=== PATIENT | male | born 1965 | race Caucasian/White ===

== ENCOUNTER → 2017-05-25 | Outpatient (CLI) | payer BC ==
[2017-05-25 07:56] LABS: INR 1.1 (<1.2); Partial Thromboplastin Time 24.3 sec (22.0-30.0); Prothrombin Time 11.2 sec (9.0-12.0)
[2017-05-25 08:02] LABS: Anisocytosis Slight; Basophils % (A) 1 %; CH 30.7; CHCM 35.7; Eosinophils # (A) 0.1 k/uL (0-0.7); Eosinophils % (A) 4 %; HCT 37.1 % (39.0-53.0); HDW 3.27; HGB 12.6 gm/dL (13.0-17.5); Luc # (Auto) 0.05; Luc % (Auto) 3; Lymphocytes # (A) 0.3 k/uL (1.0-4.8); Lymphocytes % (A) 20 %; MCH 29.5 pg (25.0-35.0); MCHC 34.1 g/dL (31.0-37.0); MCV 86.4 fL (80.0-100.0); Mean Platelet Volume 7.7; Monocytes # (A) 0.1 k/uL (0-1.0); Monocytes % (A) 8 %; Neutrophils # (A) 1.1 k/uL (1.3-7.7); Neutrophils % (A) 66 %; RBC 4.29 m/uL (4.30-5.90); RDW 16.2 % (11.5-15.5); WBC (Perox) 1.63
[2017-05-25 08:43] LABS: WBC 1.6 k/uL (3.8-10.6)
[2017-05-25 10:03] LABS: ALT 90 U/L (21-72); AST 47 U/L (17-59); Alkaline Phosphatase 177 U/L (38-126); Anion Gap 10 mmol/L; Bilirubin, Delta 0.4 mg/dL (0.0-0.2); Blood Urea Nitrogen 17 mg/dL (9-20); Calcium 8.8 mg/dL (8.4-10.2); Carbon Dioxide 25 mmol/L (22-30); Chloride 105 mmol/L (98-107); Glucose 259 mg/dL (74-99); Non-African American GFR(MDRD) >60 (>60 ml/min/1.73 sqM); Potassium 4.5 mmol/L (3.5-5.1); Sodium 140 mmol/L (137-145); Total Bilirubin 1.3 mg/dL (0.2-1.3); Total Protein 6.3 g/dL (6.3-8.2)
== END | disposition home or self-care (01) ==
LOC: LABWHC1 07:15
PROVIDERS: ATTEND Radiology Diagnostic Radiology
DX: C20 Malignant neoplasm of rectum (principal); C78.7 Secondary malignant neoplasm of liver and intrahepatic bile duct
CPT/HCPCS: 36415; 80048; 80076; 82378; 85025; 85610; 85730

== ENCOUNTER → 2017-08-31 | Outpatient (CLI) | payer BC ==
[2017-08-31 07:30] LABS: Basophils % (A) 0 %; Eosinophils # (A) 0.1 k/uL (0-0.7); Eosinophils % (A) 6 %; HCT 39.3 % (39.0-53.0); HGB 13.3 gm/dL (13.0-17.5); Lymphocytes # (A) 0.3 k/uL (1.0-4.8); Lymphocytes % (A) 17 %; MCH 27.3 pg (25.0-35.0); MCHC 33.9 g/dL (31.0-37.0); MCV 80.7 fL (80.0-100.0); Mean Platelet Volume 7.3; Monocytes # (A) 0.2 k/uL (0-1.0); Monocytes % (A) 11 %; Neutrophils # (A) 1.2 k/uL (1.3-7.7); Neutrophils % (A) 64 %; RBC 4.87 m/uL (4.30-5.90); RDW 15.7 % (11.5-15.5)
[2017-08-31 07:48] LABS: ALT 66 U/L (21-72); AST 48 U/L (17-59); Albumin 3.8 g/dL (3.5-5.0); Alkaline Phosphatase 206 U/L (38-126); Anion Gap 7 mmol/L; Bilirubin, Delta 0.3 mg/dL (0.0-0.2); Blood Urea Nitrogen 15 mg/dL (9-20); Calcium 9.4 mg/dL (8.4-10.2); Carbon Dioxide 29 mmol/L (22-30); Chloride 104 mmol/L (98-107); Glucose 177 mg/dL (74-99); Potassium 4.5 mmol/L (3.5-5.1); Sodium 140 mmol/L (137-145); Total Bilirubin 1.3 mg/dL (0.2-1.3); Total Protein 6.5 g/dL (6.3-8.2)
[2017-08-31 07:59] LABS: Platelet Count 59 k/uL (150-450)
[2017-08-31 08:03] LABS: WBC 1.8 k/uL (3.8-10.6)
== END | disposition home or self-care (01) ==
LOC: LABWHC1 06:29
PROVIDERS: ATTEND Radiology Diagnostic Radiology
DX: C78.7 Secondary malignant neoplasm of liver and intrahepatic bile duct (principal)
CPT/HCPCS: 36415; 80048; 80076; 85025

== ENCOUNTER → 2017-12-07 | Outpatient (CLI) | payer BC ==
[2017-12-07 15:24] LABS: Anisocytosis Slight; Basophils % (A) 1 %; Eosinophils # (A) 0.3 k/uL (0-0.7); Eosinophils % (A) 5 %; HCT 40.5 % (39.0-53.0); HGB 13.6 gm/dL (13.0-17.5); Lymphocytes # (A) 0.6 k/uL (1.0-4.8); Lymphocytes % (A) 13 %; MCH 27.4 pg (25.0-35.0); MCHC 33.6 g/dL (31.0-37.0); MCV 81.6 fL (80.0-100.0); Mean Platelet Volume 8.2; Monocytes # (A) 0.4 k/uL (0-1.0); Monocytes % (A) 9 %; Neutrophils # (A) 3.3 k/uL (1.3-7.7); Neutrophils % (A) 69 %; Poikilocytosis Slight; RBC 4.96 m/uL (4.30-5.90); RDW 16.7 % (11.5-15.5); WBC 4.7 k/uL (3.8-10.6)
[2017-12-07 15:59] LABS: Large Platelets Present; Platelet Count 80 k/uL (150-450)
== END | disposition home or self-care (01) ==
LOC: LABWHC1 15:07
PROVIDERS: ATTEND Internal Medicine Medical Oncology
DX: C20 Malignant neoplasm of rectum (principal)
CPT/HCPCS: 36415; 85025

== ENCOUNTER 2017-12-11 16:41 | Inpatient (IN) | payer BC ==
[2017-12-11] MEDS ORDERED: MORPHINE SULFATE 4 MG/0.8 ML SYRINGE (INJ) IVP STA (17:05)
[2017-12-11] MEDS ORDERED: ONDANSETRON 4 MG/2 ML VIAL IVP STA (17:05)
[2017-12-11] MEDS ORDERED: SODIUM CHLORIDE 0.9% 1,000 ML IV STA (17:24)
--- NOTE | 2017-12-11 17:24 | ED ---
General Adult HPI - General Chief complaint: Shortness of Breath Stated complaint: SOB/Abd Pain/Hx colo-rectal ca Time Seen by Provider: 12/11/17 16:52 Source: patient, RN notes reviewed Mode of arrival: ambulatory Limitations: no limitations - History of Present Illness Initial comments: Patient is a 52-year-old male with significant past medical history for colorectal cancer, presented to the emergency room today with chief complaint of increased abdominal pain starting this morning. He states his pain medication at home does not seem to be helping. He states that he's also had some increased short of breath at this abdominal pain started. He states that he recently had 2 L drained from the right long doctor Gaston Nevarez. Patient states that he took his chemo medication today. He denies any fever. Denies any associated symptoms. Patient denies any recent fever, chills, shortness of breath, chest pain, numbness or tingling, dysuria or hematuria, constipation or diarrhea, headaches or visual changes, or any other complaints. - Related Data Home Medications Medication Instructions Recorded Confirmed Citalopram Hydrobromide 40 mg PO DAILY 10/29/14 12/11/17 [Citalopram HBr] Glimepiride [Amaryl] 4 mg PO DAILY 10/29/14 12/11/17 metFORMIN HCL [Glucophage] 500 mg PO DAILY 10/29/14 12/11/17 Labetalol [Trandate] 200 mg PO BID 10/16/15 12/11/17 Lisinopril [Prinivil] 20 mg PO DAILY 12/11/17 12/11/17 Morphine Sulfate ER [Ms Contin 15 mg PO Q8H 12/11/17 12/11/17 15Mg] Trifluridine/Tipiracil HCl 2 tab PO BID 12/11/17 12/11/17 [Lonsurf 20 mg-8.19 mg Tablet] oxyCODONE HCL 10 mg PO Q4HR PRN 12/11/17 12/11/17 Allergies Allergy/AdvReac Type Severity Reaction Status Date / Time No Known Allergies Allergy Verified 12/11/17 16:47 Review of Systems ROS Statement: Those systems with pertinent positive or pertinent negative responses have been documented in the HPI. ROS Other: All systems not noted in ROS Statement are negative. Past Medical History Past Medical History: Cancer, Diabetes Mellitus, Hypertension, Pneumonia Additional Past Medical History / Comment(s): liver cancer, colorectal cancer stage 4, lymphoma, Pleuracy History of Any Multi-Drug Resistant Organisms: None Reported Past Surgical History: Bowel Resection Additional Past Surgical History / Comment(s): colonoscopy/bx,liver bx 3/4 liver resected d/t cancer-stated has coils in liver, 1-16 pt stated he had 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,has ileostomy, rt upper chest port. Past Anesthesia/Blood Transfusion Reactions: No Reported Reaction Past Psychological History: Anxiety Smoking Status: Never smoker Past Alcohol Use History: Rare Past Drug Use History: Marijuana - Past Family History Father Family Medical History: AICD/Pacemaker, Coronary Artery Disease (CAD), Diabetes Mellitus Additional Family Medical History / Comment(s): cabg Mother Family Medical History: Diabetes Mellitus, Hypertension Additional Family Medical History / Comment(s): migraines, psoriases General Exam - General Exam Comments Initial Comments: General: The patient is awake and alert, in no distress Eye: Pupils are equal, round and reactive to light, extra-ocular movements are intact. No nystagmus. There is normal conjunctiva bilaterally. Ears, nose, mouth and throat: There are moist mucous membranes and no oral lesions. Neck: The neck is supple, there is no tenderness or JVD. Cardiovascular: There is a regular rate and rhythm. No murmur, rub or gallop is appreciated. Respiratory: Lungs are clear to auscultation, respirations are non-labored, breath sounds are equal. No wheezes, stridor, rales, or rhonchi. Gastrointestinal: Abdomen soft on palpation. Does have tenderness epigastric and upper quadrants. No rebound tenderness. No guarding. Left sided CVA tenderness. Musculoskeletal: Normal ROM, no tenderness. Strength 5/5. Sensation intact. Pulses equal bilaterally 2+. Neurological: A&O x 3. CN II-XII intact, There are no obvious motor or sensory deficits. Coordination appears grossly intact. Speech is normal. Skin: Skin is warm and dry and no rashes or lesions are noted. Psychiatric: Cooperative, appropriate mood & affect, normal judgment. Limitations: no limitations Course Vital Signs 12/11/17 12/11/17 16:42 17:39 Temperature 99.5 F 98.3 F Pulse Rate 101 H 98 Respiratory 18 18 Rate Blood Pressure 118/78 118/75 O2 Sat by Pulse 97 95 Oximetry Medical Decision Making - Medical Decision Making Case discussed in detail with attending physician Dr. Madden. Patient reexamined at this time shows no signs of distress resting comfortably. Patient labs been reviewed. Patient's x-ray of the right lower lung shows a large effusion cannot exclude possible pneumonia. Patient will be started on antibiotics to cover for infection. Case is discussed with Rosio yates nurse practitioner will admit for Dr. Amaro. Pulmonology will be consulted. Patient aware the plan states understanding. - Lab Data Result diagrams: 12/11/17 17:27 12/11/17 17:27 Lab Results 12/11/17 12/11/17 12/11/17 Range/Units 17:27 17:27 17:27 WBC 4.2 (3.8-10.6) k/uL RBC 4.87 (4.30-5.90) m/uL Hgb 14.0 (13.0-17.5) gm/dL Hct 39.2 (39.0-53.0) % MCV 80.6 (80.0-100.0) fL MCH 28.7 (25.0-35.0) pg MCHC 35.6 (31.0-37.0) g/dL RDW 16.7 H (11.5-15.5) % Plt Count 94 L (150-450) k/uL Neutrophils % 66 % Lymphocytes % 15 % Monocytes % 8 % Eosinophils % 7 % Basophils % 1 % Neutrophils # 2.8 (1.3-7.7) k/uL Lymphocytes # 0.6 L (1.0-4.8) k/uL Monocytes # 0.4 (0-1.0) k/uL Eosinophils # 0.3 (0-0.7) k/uL Basophils # 0.0 (0-0.2) k/uL Hyperchromasia Slight Poikilocytosis Slight Anisocytosis Slight PT 13.5 H (9.0-12.0) sec INR 1.4 H (<1.2) APTT 25.1 (22.0-30.0) sec Sodium 138 (137-145) mmol/L Potassium 4.0 (3.5-5.1) mmol/L Chloride 104 (98-107) mmol/L Carbon Dioxide 26 (22-30) mmol/L Anion Gap 8 mmol/L BUN 11 (9-20) mg/dL Creatinine 0.52 L (0.66-1.25) mg/dL Est GFR (CKD-EPI)AfAm >90 (>60 ml/min/1.73 sqM) Est GFR (CKD-EPI)NonAf >90 (>60 ml/min/1.73 sqM) Glucose 240 H (74-99) mg/dL Calcium 8.6 (8.4-10.2) mg/dL Total Bilirubin 2.1 H (0.2-1.3) mg/dL AST 52 (17-59) U/L ALT 51 (21-72) U/L Alkaline Phosphatase 302 H (38-126) U/L Troponin I (0.000-0.034) ng/mL Total Protein 5.8 L (6.3-8.2) g/dL Albumin 3.1 L (3.5-5.0) g/dL Amylase 33 (30-110) U/L Lipase 40 (23-300) U/L 12/11/17 Range/Units 17:27 WBC (3.8-10.6) k/uL RBC (4.30-5.90) m/uL Hgb (13.0-17.5) gm/dL Hct (39.0-53.0) % MCV (80.0-100.0) fL MCH (25.0-35.0) pg MCHC (31.0-37.0) g/dL RDW (11.5-15.5) % Plt Count (150-450) k/uL Neutrophils % % Lymphocytes % % Monocytes % % Eosinophils % % Basophils % % Neutrophils # (1.3-7.7) k/uL Lymphocytes # (1.0-4.8) k/uL Monocytes # (0-1.0) k/uL Eosinophils # (0-0.7) k/uL Basophils # (0-0.2) k/uL Hyperchromasia Poikilocytosis Anisocytosis PT (9.0-12.0) sec INR (<1.2) APTT (22.0-30.0) sec Sodium (137-145) mmol/L Potassium (3.5-5.1) mmol/L Chloride (98-107) mmol/L Carbon Dioxide (22-30) mmol/L Anion Gap mmol/L BUN (9-20) mg/dL Creatinine (0.66-1.25) mg/dL Est GFR (CKD-EPI)AfAm (>60 ml/min/1.73 sqM) Est GFR (CKD-EPI)NonAf (>60 ml/min/1.73 sqM) Glucose (74-99) mg/dL Calcium (8.4-10.2) mg/dL Total Bilirubin (0.2-1.3) mg/dL AST (17-59) U/L ALT (21-72) U/L Alkaline Phosphatase (38-126) U/L Troponin I <0.012 (0.000-0.034) ng/mL Total Protein (6.3-8.2) g/dL Albumin (3.5-5.0) g/dL Amylase (30-110) U/L Lipase (23-300) U/L Disposition Clinical Impression: Pleural effusion, 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
[2017-12-11] MEDS ORDERED: METOCLOPRAMIDE 5 MG/ML 2 ML VIAL IVP STA (17:30)
[2017-12-11] MEDS ORDERED: diphenhydrAMINE 50 MG/ML 1 ML VIAL IVP STA (17:30)
[2017-12-11 17:38] LABS: Anisocytosis Slight; Basophils % (A) 1 %; Eosinophils # (A) 0.3 k/uL (0-0.7); Eosinophils % (A) 7 %; HCT 39.2 % (39.0-53.0); Hyperchromasia Slight; Lymphocytes # (A) 0.6 k/uL (1.0-4.8); Lymphocytes % (A) 15 %; MCH 28.7 pg (25.0-35.0); MCHC 35.6 g/dL (31.0-37.0); MCV 80.6 fL (80.0-100.0); Mean Platelet Volume 7.5; Monocytes # (A) 0.4 k/uL (0-1.0); Monocytes % (A) 8 %; Neutrophils # (A) 2.8 k/uL (1.3-7.7); Neutrophils % (A) 66 %; Poikilocytosis Slight; RBC 4.87 m/uL (4.30-5.90); RDW 16.7 % (11.5-15.5); WBC 4.2 k/uL (3.8-10.6)
[2017-12-11 17:48] LABS: ALT 51 U/L (21-72); AST 52 U/L (17-59); Albumin 3.1 g/dL (3.5-5.0); Alkaline Phosphatase 302 U/L (38-126); Amylase 33 U/L (30-110); Anion Gap 8 mmol/L; Blood Urea Nitrogen 11 mg/dL (9-20); Calcium 8.6 mg/dL (8.4-10.2); Carbon Dioxide 26 mmol/L (22-30); Chloride 104 mmol/L (98-107); Glucose 240 mg/dL (74-99); INR 1.4 (<1.2); Lipase 40 U/L (23-300); Partial Thromboplastin Time 25.1 sec (22.0-30.0); Prothrombin Time 13.5 sec (9.0-12.0); Sodium 138 mmol/L (137-145); Total Bilirubin 2.1 mg/dL (0.2-1.3); Total Protein 5.8 g/dL (6.3-8.2)
[2017-12-11 18:06] LABS: Platelet Count 94 k/uL (150-450)
--- NOTE | 2017-12-11 18:26 | XR ---
EXAMINATION TYPE: XR chest 2V DATE OF EXAM: 12/11/2017 COMPARISON: 07/01/2016 HISTORY: Chest pain TECHNIQUE: Frontal and lateral views of the chest are obtained. FINDINGS: There is opacification of the right lower hemithorax consistent with large pleural effusio n. There is right central venous catheter with the tip in the superior vena cava. Left lung is clear. There is no heart failure. Heart size is probably normal. The bony thorax is intact. IMPRESSION: There is new large right pleural effusion compared to old exam. No heart failure. Right lower lobe pneumonia is possible.
--- NOTE | 2017-12-11 18:27 | XR ---
EXAMINATION TYPE: XR KUB DATE OF EXAM: 12/11/2017 COMPARISON: NONE HISTORY: Chest pain abdominal pain TECHNIQUE: 2 views FINDINGS: There is no sign of intestinal obstruction or pneumoperitoneum. Fecal pattern appears roseanne l. There are clips from cholecystectomy. There is evidence of large right pleural effusion. There is no evidence of a mass. There are no pathologic calcifications over the kidneys. IMPRESSION: Large right pleural effusion. Nonacute abdomen.
[2017-12-11] MEDS ORDERED: ONDANSETRON 4 MG/2 ML VIAL IVP PRN (18:51)
[2017-12-11] MEDS ORDERED: NALOXONE 0.4 MG/ML 1 ML VIAL IV PRN (18:51)
[2017-12-11] MEDS ORDERED: cefTRIAXone 1,000 MG VIAL (IM USE) IM STA (18:56)
[2017-12-11] MEDS ORDERED: AZITHROMYCIN 500 MG in SODIUM CHLORIDE 0.9% 250 ML IVPB STA (18:56)
[2017-12-11] MEDS ORDERED: diphenhydrAMINE 50 MG/ML 1 ML VIAL IVP PRN (18:57)
[2017-12-11] MEDS ORDERED: cefTRIAXone IN SWFI 1,000 MG/10 ML SYRINGE IVP STA (19:48)
[2017-12-11] MEDS: MORPHINE SULFATE 4 MG/0.8 ML SYRINGE (INJ) IV PRN (21:15)
[2017-12-11] MEDS: METOCLOPRAMIDE 5 MG/ML 2 ML VIAL IVP SCH (23:19)
[2017-12-12] MEDS ORDERED: TEMAZEPAM 15 MG CAP PO PRN (01:14)
[2017-12-12] MEDS ORDERED: ALPRAZolam 0.25 MG TAB PO PRN (01:14)
[2017-12-12] MEDS: MORPHINE SULFATE ER 15 MG TABLET PO SCH ×3 (02:29→16:55)
[2017-12-12 02:49] LABS: Appearance,Urine Clear (Clear); Bilirubin,Urine Negative (Negative); Blood,Urine Negative (Negative); Color,Urine Orange; Glucose,Urine (UA) 4+ (Negative); Ketones,Urine Negative (Negative); Leukocyte Esterase,Urine Negative (Negative); Mucus,Urine Moderate /hpf; Nitrite,Urine Negative (Negative); PH, Urine 5.5 (5.0-8.0); Protein,Urine 1+ (Negative); RBC,Urine <1 /hpf (0-5); Specific Gravity,Urine 1.027 (1.001-1.035); WBC,Urine 1 /hpf (0-5)
--- NOTE | 2017-12-12 03:36 | HP ---
HISTORY AND PHYSICAL DATE OF ADMISSION: 12/11/2017 CHIEF COMPLAINT: Shortness with abdominal pain. HISTORY OF PRESENT ILLNESS: This 52-year-old gentleman with a past medical history of colorectal cancer, diabetes, hypertension, pneumonia, being followed by Dr. Inman as well as [facility] was recently admitted, recently had thoracocentesis about 2 L from [facility] for right pleural effusion. The patient apparently is on oral chemotherapy. Currently the patient was admitted with shortness of breath as well as abdominal pain since this morning. The pain was felt in the anterior part of the abdomen and the patient is admitted for further evaluation and treatment. There is no history of fever, rigors, no history of headache, loss of consciousness, seizures. PAST MEDICAL HISTORY: History of colorectal cancer, diabetes, hypertension, pneumonia, liver METS, anxiety. MEDICATIONS: 1. Oxycodone 10 mg q.4h p.r.n. 2. Lonsurf 2 tablets p.o. b.i.d. 3. MS Contin 15 mg q.i.d. 4. Glucophage 500 mg p.o. daily. 5. Prinivil 20 mg p.o. daily. 6. Trandate 200 mg p.o. b.i.d. 7. Amaryl 4 mg p.o. daily. 8. Celexa 40 mg p.o. daily. ALLERGIES: None. FAMILY HISTORY: History of AICD pacemaker, CAD, CABG. SOCIAL HISTORY: History of smoking. No alcohol intake. REVIEW OF SYSTEMS: ENT: No diminished vision. No diminished hearing. Cardio system: As mentioned earlier. Respiration: As mentioned earlier. : No dysuria. Nervous system: No numbness or weakness. ALLERGY/IMMUNOLOGY: No asthma or hayfever. Musculoskeletal: As mentioned earlier. Hematology/Oncology: As mentioned earlier. Endocrine: As mentioned earlier. Constitutional: As mentioned earlier. Dermatology: Negative. Rheumatology: Negative. Psychiatric: As mentioned earlier. PHYSICAL EXAMINATION: The patient is alert and oriented times three. Pulse 79, blood pressure 126/92, respirations 16, temperature is 96 degrees, pulse ox 94% on room air. HEENT: Conjunctivae normal. Oral mucosa moist. Neck is no jugular venous distention. No carotid bruit. No thyroid enlargement. Cardiovascular S1, S2. Respirations: Breath sounds are markedly diminished on the right side. A few scattered rhonchi present. No crackles. ABDOMEN: Soft. Mild diffuse discomfort on palpation. No guarding. No rigidity. No mass palpable. Legs: No edema and no swelling. Nervous system: Higher functions as mentioned earlier. Moves all four limbs. No focal deficits. LYMPHATICS: No lymph nodes palpable in neck, axillae or groin. SKIN: No ulcer, rash or bruises. LAB STUDIES: WBC hemoglobin is 14, platelets 95. INR is 1.4. Glucose 240, alkaline phosphatase 302. ASSESSMENT: 1. Right pleural effusion with shortness of breath with possible metastatic pleural effusion. 2. Colorectal cancer with history of hepatic METS and hepatectomy. 3. Diabetes type 2. 4. Hypertension. 5. History of pneumonia. 6. History of lymphoma. 8. History of anxiety. 9. Continued nicotine dependence. RECOMMENDATIONS AND DISCUSSION: This 52-year-old gentleman who presented with multiple complex medical issues. We will monitor the patient closely. Continue the current management and symptomatic treatment. I recommend pulmonary consultation. Otherwise, symptomatic treatment will be provided. The IV Protonix also will be given and home medications will be continued. The prognosis guarded because of multiple complex medical issues. Further recommendations to follow. Copy of dictation forwarded to Dr. Inman who is the primary physician. MMODL / IJN: [id number] / MTDD
[2017-12-12] MEDS: METOCLOPRAMIDE 5 MG/ML 2 ML VIAL IVP SCH ×2 (06:19→13:06)
[2017-12-12 07:11] LABS: Anisocytosis Slight; Basophils % (A) 0 %; Eosinophils # (A) 0.2 k/uL (0-0.7); Eosinophils % (A) 6 %; HCT 37.4 % (39.0-53.0); HGB 12.7 gm/dL (13.0-17.5); Lymphocytes # (A) 0.5 k/uL (1.0-4.8); Lymphocytes % (A) 17 %; MCV 82.2 fL (80.0-100.0); Mean Platelet Volume 8.7; Monocytes # (A) 0.2 k/uL (0-1.0); Monocytes % (A) 8 %; Neutrophils # (A) 1.8 k/uL (1.3-7.7); Neutrophils % (A) 66 %; Poikilocytosis Slight; RBC 4.55 m/uL (4.30-5.90); RDW 16.8 % (11.5-15.5); WBC 2.8 k/uL (3.8-10.6)
[2017-12-12 07:12] LABS: Platelet Count 74 k/uL (150-450)
[2017-12-12 07:17] LABS: Glucose,Whole Blood 206 mg/dL (75-99)
[2017-12-12] MEDS: INSULIN ASPART 100 UNIT/ML 1 ML 10 ML VIAL SQ SCH ×2 (07:53→12:06)
[2017-12-12 07:57] LABS: ALT 45 U/L (21-72); AST 41 U/L (17-59); Albumin 2.7 g/dL (3.5-5.0); Alkaline Phosphatase 266 U/L (38-126); Anion Gap 8 mmol/L; Blood Urea Nitrogen 11 mg/dL (9-20); Calcium 8.1 mg/dL (8.4-10.2); Carbon Dioxide 28 mmol/L (22-30); Chloride 106 mmol/L (98-107); Glucose 211 mg/dL (74-99); Potassium 4.3 mmol/L (3.5-5.1); Sodium 142 mmol/L (137-145); Total Bilirubin 1.1 mg/dL (0.2-1.3); Total Protein 5.3 g/dL (6.3-8.2)
[2017-12-12] MEDS ORDERED: AZITHROMYCIN 500 MG in SODIUM CHLORIDE 0.9% 250 ML IVPB SCH (09:00)
[2017-12-12] MEDS ORDERED: cefTRIAXone 1,000 MG VIAL (IM USE) IM SCH (09:00)
[2017-12-12] MEDS ORDERED: HEPARIN SODIUM,PORCINE 5,000 UNIT/ML 1 ML VIAL SQ SCH (09:00)
[2017-12-12] MEDS ORDERED: metFORMIN 500 MG TAB PO SCH (09:00)
[2017-12-12] MEDS ORDERED: CITALOPRAM HYDROBROMIDE 20 MG TAB PO SCH (09:00)
[2017-12-12] MEDS ORDERED: LABETALOL 200 MG TAB PO SCH (09:00)
[2017-12-12] MEDS ORDERED: LISINOPRIL 20 MG TAB PO SCH (09:00)
[2017-12-12] MEDS ORDERED: cefTRIAXone IN SWFI 1,000 MG/10 ML SYRINGE IVP SCH (09:00)
[2017-12-12] MEDS ORDERED: TIPIRACIL HCL PO SCH ×2 (09:00→15:00)
[2017-12-12] MEDS ORDERED: GLIMEPIRIDE 4 MG TAB PO SCH (09:00)
[2017-12-12] MEDS ORDERED: PANTOPRAZOLE 40 MG/10 ML VIAL IVP SCH (09:00)
[2017-12-12] MEDS ORDERED: TRIFLURIDINE PO SCH ×2 (09:00→15:00)
[2017-12-12] MEDS ORDERED: NICOTINE 14MG/24HR PATCH TRANSDERM SCH (09:00)
[2017-12-12 09:36] VITALS: RESP 18
[2017-12-12] MEDS ORDERED: IOPAMIDOL-300 CONTRAST 30 ML VIAL (ORAL USE) PO PRN (09:50)
[2017-12-12 11:41] LABS: Glucose,Whole Blood 100 mg/dL (75-99)
[2017-12-12] MEDS ORDERED: LIDOCAINE 1% INJ 10MG/ML (20 ML MDV) SQ ONE (12:29)
[2017-12-12 12:46] LABS: Total Protein 5.3 g/dL (6.3-8.2)
[2017-12-12] MEDS: MORPHINE SULFATE 4 MG/0.8 ML SYRINGE (INJ) IV PRN (13:10)
--- NOTE | 2017-12-12 13:24 | CT ---
EXAMINATION TYPE: CT abdomen pelvis wo con DATE OF EXAM: 12/12/2017 HISTORY: History of colon cancer on chemotherapy with pain rule out obstruction CT DLP: 495.1 mGycm. Automated Exposure Control for Dose Reduction was Utilized. TECHNIQUE: CT scan of the abdomen and pelvis is performed without oral or IV contrast. Patient refus ed complete oral contrast dose as was ordered. COMPARISON: CT abdomen and pelvis October 16, 2015. Abdominal and chest x-ray from yesterday FINDINGS: Within the limitations of a non-contrast study, the following observations are made. LUNG BASES: There is partial visualization of moderate to large right pleural effusion causing some m ediastinal shift with associated compressive atelectasis. LIVER/GB: Calcifications along posterior aspect of liver likely from partial hepatectomy are redemons trated. There are several new heterogeneous masses that are felt present in the liver likely reflecti ng recurrent metastatic disease. PANCREAS: No significant abnormality is seen. SPLEEN: Splenomegaly is now identified measuring 18 cm long axis coronal image 59. There is mild to m oderate surrounding perisplenic ascites along superior aspect. ADRENALS: No significant abnormality is seen. KIDNEYS: No significant abnormality is seen. BOWEL: Surgical sutures at level of sigmoid rectal colon are redemonstrated. There are new sutures in the anterior right mid abdomen from ileostomy reversal. Evaluation bowel slightly suboptimal due to minimal enteric contrast. There is no suspicious small or large bowel dilatation identified. Stomach is poorly distended along with duodenal sweep with mild to moderate wall thickening. There is mild wa ll thickening in the right colon. GENITAL ORGANS: No gross abnormality seen. There are prominent predominantly subcentimeter lymph nodes throughout the mesentery with ill-defined fluid. Small amount of free fluid right paracolic and infracolic gutter is seen. OSSEOUS STRUCTURES: No significant abnormality is seen. OTHER: There is evidence of ventral wall hernia repair surgery. There is small fluid containing umbil ical hernia. Small amount of pelvic ascites is noted. IMPRESSION: 1. No suspicious bowel dilatation is seen to suggest obstruction. 2. Partial visualization of moderate to large right pleural effusion. 3. New hepatic metastatic disease identified. Suspect peritoneal deposits or metastatic disease with prominent nodularity or lymph nodes throughout the mesentery. Splenomegaly is present and likely on b asis hepatic metastatic disease in the remnant liver.
[2017-12-12 15:04] LABS: Hemoglobin A1C 5.7 % (4.0-6.0)
[2017-12-12] MEDS ORDERED: MORPHINE SULFATE 4 MG/0.8 ML SYRINGE (INJ) IM STA (15:38)
--- NOTE | 2017-12-12 15:55 | XR ---
EXAMINATION TYPE: XR chest 1V portable DATE OF EXAM: 12/12/2017 COMPARISON: 12/11/2017 HISTORY: Post right thoracentesis TECHNIQUE: Single frontal view of the chest is obtained. FINDINGS: There is improved aeration involving the right lung with persistent consolidation and smal l effusion. No sizable pneumothorax. Mediport catheter seen. Left lung clear. Hypertrophic change of the right shoulder noted. Surgical clips in the abdomen noted. IMPRESSION: 1 no pneumothorax postthoracentesis. Interval reduced amount pleural fluid seen with per sistent areas of consolidation.
[2017-12-12 16:08] VITALS: BP 119/74; PULSE 96; TEMP 98
--- NOTE | 2017-12-12 16:48 | P.CNPUL ---
History of Present Illness Consult date: 12/12/17 Requesting physician: Radhames Amaro Reason for consult: dyspnea, pleural effusion, abnormal CXR/CT Chief complaint: Dyspnea, large right-sided pleural effusion, colorectal cancer with metasta History of present illness: Mr. Mcgill is 52-year-old white male patient of Dr. Inman who presented to the emergency department on 12/11/2017 at 1641 with complaints of increasing dyspnea , and increased abdominal pain starting this morning. Patient has a past medical history of colorectal cancer diagnosed 3 years ago, status post radiation treatment, and currently on chemo. Patient had right-sided thoracentesis done at [facility] one half weeks ago would removal of 2 L of pleural fluid, he is not sure of the cytology results. Denies any fever, denies any chest pain, no nausea, no vomiting, diarrhea. Chest x-ray showed a new large right pleural effusion. Patient had CT abdomen and pelvis without contrast for his complaints of abdominal discomfort, and it showed no suspicious bowel dilation to suggest obstruction. New hepatic metastatic disease was identified, with suspicion for peritoneal deposits or metastatic disease with prominent nodularity or lymph nodes throughout the mesentery. Splenomegaly was present and was thought to be likely on basis of hepatic metastatic disease. The medical history includes diabetes, hypertension, pneumonia, anxiety. Her consulted in regards to a large right pleural effusion , findings of the chest x-ray were discussed with the patient, and it was recommended to proceed with a right-sided thoracentesis and the pleural fluid will be sent for analysis. The patient and the family are in agreement with the plan. In the case the cytology from the pleural fluid comes back positive for malignancy, he may have to have a Pleurx catheter placement. The patient understands, and wants to proceed with thoracentesis at this time with follow- up with his regular in college 18 at [facility]. Review of Systems All systems: negative Constitutional: Denies chills, Denies fever Eyes: denies blurred vision, denies pain Ears, nose, mouth and throat: Denies headache, Denies sore throat Cardiovascular: Denies chest pain, Denies shortness of breath Respiratory: Denies cough Gastrointestinal: Denies abdominal pain, Denies diarrhea, Denies nausea, Denies vomiting Musculoskeletal: Denies myalgias Integumentary: Denies pruritus, Denies rash Neurological: Denies numbness, Denies weakness Psychiatric: Denies anxiety, Denies depression Endocrine: Denies fatigue, Denies weight change Past Medical History Past Medical History: Cancer, Diabetes Mellitus, Hypertension, Pneumonia Additional Past Medical History / Comment(s): liver cancer, colorectal cancer stage 4(had sx, radiation and is recieving chemo) , lymphoma, Pleural effusion History of Any Multi-Drug Resistant Organisms: None Reported Past Surgical History: Bowel Resection Additional Past Surgical History / Comment(s): colonoscopy/bx,liver bx 3/4 liver resected d/t cancer-stated has coils in liver, 08-24-15 pt stated he had 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,had ileostomy-reversed, rt upper chest port.thoracentesis 2 weeks at [facility] Past Anesthesia/Blood Transfusion Reactions: No Reported Reaction Smoking Status: Current some day smoker - Past Family History Father Family Medical History: AICD/Pacemaker, Coronary Artery Disease (CAD), Diabetes Mellitus Additional Family Medical History / Comment(s): cabg Mother Family Medical History: Diabetes Mellitus, Hypertension Additional Family Medical History / Comment(s): migraines, psoriases Medications and Allergies Home Medications Medication Instructions Recorded Confirmed Type Citalopram Hydrobromide 40 mg PO DAILY 10/29/14 12/11/17 History [Citalopram HBr] Glimepiride [Amaryl] 4 mg PO DAILY 10/29/14 12/11/17 History metFORMIN HCL [Glucophage] 500 mg PO DAILY 10/29/14 12/11/17 History Labetalol [Trandate] 200 mg PO BID 10/16/15 12/11/17 History Lisinopril [Prinivil] 20 mg PO DAILY 12/11/17 12/11/17 History Morphine Sulfate ER [Ms Contin 15 mg PO Q8H 12/11/17 12/11/17 History 15Mg] Trifluridine/Tipiracil HCl 2 tab PO BID 12/11/17 12/11/17 History [Lonsurf 20 mg-8.19 mg Tablet] oxyCODONE HCL 10 mg PO Q4HR PRN 12/11/17 12/11/17 History Allergies Allergy/AdvReac Type Severity Reaction Status Date / Time No Known Allergies Allergy Verified 12/11/17 16:47 Physical Exam Vitals: Vital Signs Temp Pulse Pulse Resp BP BP Pulse Ox 12/12/17 15:00 98.0 F 96 18 119/74 95 12/12/17 09:46 18 12/12/17 07:35 97.8 F 91 18 121/87 95 12/11/17 20:30 96.0 F L 79 16 126/92 95 12/11/17 20:09 97.9 F 97 18 122/79 97 12/11/17 17:39 98.3 F 98 18 118/75 95 12/11/17 16:42 99.5 F 101 H 18 118/78 97 Intake and Output 12/12/17 12/12/17 12/12/17 06:59 14:59 22:59 Intake Total 20 250 Balance 20 250 Intake: IV 20 saline flush 20 Intake, IV Titration 250 Amount Azithromycin 500 mg In 250 Sodium Chloride 0.9% 250 ml @ 125 mls/hr IVPB DAILY [facility] Rx#:[id number] Other: Voiding Method Toilet GENERAL EXAM: Alert, pleasant, 52-year-old white male, comfortable in no apparent distress. HEAD: Normocephalic/atraumatic. EYES: Normal reaction of pupils, equal size. Conjunctiva pink, sclera white. NOSE: Clear with pink turbinates. THROAT: No erythema or exudates. NECK: No masses, no JVD, no thyroid enlargement, no adenopathy. CHEST: No chest wall deformity. Symmetrical expansion. LUNGS: Equal air entry with diminished breath sounds on the right lower lobe, with dullness to percussion CVS: Regular rate and rhythm, normal S1 and S2, no gallops, no murmurs, no rubs ABDOMEN: Soft, tender. No hepatosplenomegaly, normal bowel sounds, no guarding or rigidity. EXTREMITIES: No clubbing, no edema, no cyanosis, 2+ pulses and upper and lower extremities. MUSCULOSKELETAL: Muscle strength and tone normal. SPINE: No scoliosis or deformity SKIN: No rashes CENTRAL NERVOUS SYSTEM: Alert and oriented -3. No focal deficits, tone is normal in all 4 extremities. PSYCHIATRIC: Alert and oriented -3. Appropriate affect. Intact judgment and insight. Results - Laboratory Findings CBC and BMP: 12/12/17 06:53 12/12/17 06:53 PT/INR, D-dimer PT 13.5 sec (9.0-12.0) H 12/11/17 17:27 INR 1.4 (<1.2) H 12/11/17 17:27 Abnormal lab findings: Abnormal Labs 12/11/17 12/11/17 12/11/17 17:27 17:27 17:27 WBC Hgb Hct RDW 16.7 H Plt Count 94 L Lymphocytes # 0.6 L PT 13.5 H INR 1.4 H Creatinine 0.52 L Glucose 240 H POC Glucose (mg/dL) Calcium Total Bilirubin 2.1 H Alkaline Phosphatase 302 H Lactate Dehydrogenase Total Protein 5.8 L Albumin 3.1 L Urine Protein Urine Glucose (UA) Urine Mucus 12/12/17 12/12/17 12/12/17 02:35 06:53 06:53 WBC 2.8 L Hgb 12.7 L Hct 37.4 L RDW 16.8 H Plt Count 74 L Lymphocytes # 0.5 L PT INR Creatinine 0.53 L Glucose 211 H POC Glucose (mg/dL) Calcium 8.1 L Total Bilirubin Alkaline Phosphatase 266 H Lactate Dehydrogenase Total Protein 5.3 L Albumin 2.7 L Urine Protein 1+ H Urine Glucose (UA) 4+ H Urine Mucus Moderate H 12/12/17 12/12/17 12/12/17 06:53 07:13 11:39 WBC Hgb Hct RDW Plt Count Lymphocytes # PT INR Creatinine Glucose POC Glucose (mg/dL) 206 H 100 H Calcium Total Bilirubin Alkaline Phosphatase Lactate Dehydrogenase 655 H Total Protein 5.3 L Albumin Urine Protein Urine Glucose (UA) Urine Mucus - Diagnostic Findings Chest x-ray: report reviewed, image reviewed Additional studies: CT of abdomen and pelvis without contrast reviewed Assessment and Plan Plan: Assessment: #1. Large recurrent right-sided pleural effusion, rule out malignancy. Patient under went to the right-sided centesis one half weeks ago at [facility] removing 2 L of pleural fluid and the cytology results are unknown to us at this time. #2. History of colorectal cancer with metastasis to the liver, status post radiation, and currently on oral chemo #3. Acute abdominal pain, and CT of abdomen and pelvis were negative for any evidence of bowel obstruction, and there was evidence of metastasis to the liver , prominent nodularity of lymph nodes throughout the mesentery #4. Hypertension #5. Diabetes mellitus #6. Thrombocytopenia, likely related to chemo #7. Anxiety #8. Nicotine dependence, ongoing Plan: Patient has agreed received with right-sided thoracentesis, and the pleural fluid will be sent for cytology. Patient had a successful right-sided thoracentesis at the bedside and would removal of 2.5 L of fluid. Tolerated procedure well, and the patient can be discharged home and can follow up with his oncology team at [facility]. Patient may need a Pleurx catheter placed if the cytology fluid comes back positive for malignancy I performed a history & physical examination of the patient and discussed their management with my nurse practitioner, Stefanie Corona. I reviewed the nurse practitioner's note and agree with the documented findings and plan of care. Lung sounds are positive for diminished lung sounds over right lobe, with dullness to percussion, improved post right-sided thoracentesis. The findings and the impression was discussed with the patient. I attest to the documentation by the nurse practitioner. Time with Patient: Greater than 30
--- NOTE | 2017-12-12 17:02 | PCN ---
PROCEDURE NOTE OPERATIVE REPORT: Right-sided thoracentesis. PREOPERATIVE DIAGNOSIS: Large right pleural effusion. POSTOPERATIVE DIAGNOSIS: Large right pleural effusion. ANESTHESIA USED: 7 mL of 1% lidocaine. PROCEDURE: The patient was placed in a sitting upright position, the area below the right scapula was prepared in a sterile fashion and drapes were applied. At the level of the 9th intercostal space and tip of the scapula, the area was locally anesthetized using lidocaine, and a tiny incision was made with a size 11 scalpel. Then the standard thoracentesis catheter and needle was inserted at the same site, advanced into the pleural space until fluid was obtained. Then, the catheter was advanced over the needle into the pleural space and the needle was pulled out of the pleural space. Roughly 2500 mL of dark yellow fluid was removed from the right pleural space. The procedure was well tolerated, and no evidence of any immediate complications. Chest x- ray was ordered postoperatively. The fluid was sent for different diagnostic studies. MMODL / IJN: [id number] /
[2017-12-12 17:24] LABS: Glucose,Whole Blood 181 mg/dL (75-99)
[2017-12-12 18:17] LABS: Appearance,BF Clear; Color,BF Yellow; Nucleated Cells, Body Fluid 37 /uL
[2017-12-12 18:18] LABS: RBC, Body Fluid 1858 /uL
[2017-12-12 18:21] LABS: Mononuclear WBC,Body Fluid 97 %; Polynuclear WBC,Body Fluid 3 %; Total Cells Counted,Body Fluid 100
[2017-12-13 02:37] LABS: Total Protein, Body Fluid 2121 mg/dL
--- NOTE | 2017-12-13 07:41 | DS ---
DISCHARGE SUMMARY DATE OF SERVICE: 12/12/2017 FINAL DIAGNOSES: 1. rt large pleural effusion. 2. Abdominal pain, possible acute gastritis. 3. Colorectal cancer with history of hepatic METS and hepatectomy. 4. Diabetes mellitus type 2. 5. Hypertension. DISCHARGE DISPOSITION: The patient will be discharged in stable condition with guarded prognosis. HISTORY OF PRESENT ILLNESS: This is a 52-year-old gentleman with a past medical history of shortness of breath and as well as abdominal pain. The patient noted to have right pleural effusion, treated symptomatically. Dr. Spencer performed thoracocentesis and 2.5 mL of dark- colored fluid was removed and the patient improved significantly. Patient discharged in stable condition with guarded prognosis. The patient is apparently following with [facility] Oncology unit. On exam, vitals are stable. CARDIOVASCULAR SYSTEM: S1, S2. ABDOMEN: Soft. RESPIRATORY A few scattered rhonchi. Discharge diet is cardiac. Activity limited until followup. Follow up with Dr. Inman in 2-3 days. Follow up with Dr. Spencer and [facility] as recommended.. MEDICATIONS ARE: 1. Celexa 40 mg p.o. daily. 2. Amaryl 4 mg p.o. daily. 3. Trandate 200 mg p.o. b.i.d. 4. Prinivil 20 mg p.o. daily. 5. Glucophage 500 mg p.o. daily. 6. MS Contin 15 mg q.8. 7. Habitrol 14 daily. 8. Oxycodone 10 mg p.o. q.4 p.r.n. .. 9. Protonix 40 mg p.o. daily. 10.Lonsurf 22 tablets p.o. b.i.d. Once again, the patient will be discharged in a stable condition with guarded prognosis. MMODL / IJN: [id number] / MTDD
== END 2017-12-12 17:53 | disposition home or self-care (01) | DRG 187 ==
LOC: EC 16:41 → 5ONC 18:59
PROVIDERS: ADMIT Hospitalist; ATTEND Hospitalist
PROC: 0W993ZX Drainage of Right Pleural Cavity, Percutaneous Approach, Diagnostic (ICD-10-PCS; principal; 2017-12-12)
DX: J90 Pleural effusion, not elsewhere classified (principal); C78.7 Secondary malignant neoplasm of liver and intrahepatic bile duct; E11.65 Type 2 diabetes mellitus with hyperglycemia; F41.9 Anxiety disorder, unspecified; F17.200 Nicotine dependence, unspecified, uncomplicated; I10 Essential (primary) hypertension; K29.00 Acute gastritis without bleeding; Z85.038 Personal history of other malignant neoplasm of large intestine; Z90.49 Acquired absence of other specified parts of digestive tract; Z87.01 Personal history of pneumonia (recurrent); Z92.3 Personal history of irradiation; Z92.21 Personal history of antineoplastic chemotherapy; Z85.72 Personal history of non-Hodgkin lymphomas; Z82.49 Family history of ischemic heart disease and other diseases of the circulatory system; Z83.3 Family history of diabetes mellitus; Z79.84 Long term (current) use of oral hypoglycemic drugs; Z79.899 Other long term (current) drug therapy
CPT/HCPCS: 36415; 71045; 71046; 74018; 74176; 80053; 81001; 82150; 82945; 83036; 83615; 83690; 84155; 84157; 84484; 85025; 85610; 85730; 87070; 87075; 87205; 88108; 88305; 88341; 88342; 89050; 93005; 96361; 96374; 96375; 99285

== ENCOUNTER → 2017-12-18 | Outpatient (CLI) | payer BC ==
[2017-12-18 13:25] LABS: Anisocytosis Slight; HCT 40.4 % (39.0-53.0); HGB 13.7 gm/dL (13.0-17.5); MCH 28.3 pg (25.0-35.0); MCV 83.5 fL (80.0-100.0); Mean Platelet Volume 7.4; RBC 4.83 m/uL (4.30-5.90); RDW 16.4 % (11.5-15.5); WBC 3.4 k/uL (3.8-10.6)
[2017-12-18 13:34] LABS: ALT 57 U/L (21-72); AST 57 U/L (17-59); Albumin 3.1 g/dL (3.5-5.0); Alkaline Phosphatase 324 U/L (38-126); Anion Gap 8 mmol/L; Blood Urea Nitrogen 16 mg/dL (9-20); Calcium 9.1 mg/dL (8.4-10.2); Carbon Dioxide 30 mmol/L (22-30); Chloride 105 mmol/L (98-107); Glucose 112 mg/dL (74-99); Platelet Count 112 k/uL (150-450); Potassium 4.5 mmol/L (3.5-5.1); Sodium 143 mmol/L (137-145); Total Bilirubin 1.3 mg/dL (0.2-1.3); Total Protein 6.1 g/dL (6.3-8.2)
[2017-12-22 02:35] LABS: Hemoglobin A1C 5.8 % (4.0-6.0)
== END ==
LOC: LABWHC1 12:52
PROVIDERS: ATTEND Nurse Practitioner
DX: E11.9 Type 2 diabetes mellitus without complications (principal); I10 Essential (primary) hypertension; D69.6 Thrombocytopenia, unspecified; R79.89 Other specified abnormal findings of blood chemistry
CPT/HCPCS: 36415; 80053; 85027

== ENCOUNTER 2018-01-06 06:49 | Emergency (ER) | payer BC ==
[2018-01-06 07:10] VITALS: RESP 18
[2018-01-06] MEDS ORDERED: fentaNYL (PF) 50 MCG/ML 2 ML AMP IV ONE (07:20)
--- NOTE | 2018-01-06 07:20 | ED ---
Abdominal Pain HPI - General Chief Complaint: Abdominal Pain Stated Complaint: Flank pain Time Seen by Provider: 01/06/18 07:00 Source: patient, RN notes reviewed Mode of arrival: wheelchair Limitations: no limitations - History of Present Illness Initial Comments: This is a 53-year-old male with a history of cancer who is been having pleural effusions on the right in who did have a catheter for drainage placed 2 days ago at [facility] who states he is having increased pain at the site as well as some nonspecific generalized abdominal pain. 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 As much as 2 L had been removed each time. He does state the abdominal component of the pain is chronic and no different than usual. MD Complaint: abdominal pain, other - Related Data Home Medications Medication Instructions Recorded Confirmed Citalopram Hydrobromide 40 mg PO DAILY 10/29/14 12/11/17 [Citalopram HBr] Glimepiride [Amaryl] 4 mg PO DAILY 10/29/14 12/11/17 metFORMIN HCL [Glucophage] 500 mg PO DAILY 10/29/14 12/11/17 Labetalol [Trandate] 200 mg PO BID 10/16/15 12/11/17 Lisinopril [Prinivil] 20 mg PO DAILY 12/11/17 12/11/17 Morphine Sulfate ER [Ms Contin] 15 mg PO Q8H 12/11/17 12/11/17 Trifluridine/Tipiracil HCl 2 tab PO BID 12/11/17 12/11/17 [Lonsurf 20 mg-8.19 mg Tablet] oxyCODONE HCL 10 mg PO Q4HR PRN 12/11/17 12/11/17 Previous Rx's Medication Instructions Recorded Nicotine 14Mg/24Hr Patch [Habitrol] 1 patch TRANSDERM DAILY #30 patch 12/12/17 Pantoprazole Sodium [Protonix] 40 mg PO DAILY #30 tablet. 12/12/17 Allergies Allergy/AdvReac Type Severity Reaction Status Date / Time No Known Allergies Allergy Verified 01/06/18 06:57 Review of Systems ROS Statement: Those systems with pertinent positive or pertinent negative responses have been documented in the HPI. ROS Other: All systems not noted in ROS Statement are negative. 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,had ileostomy-reversed, rt upper chest port.thoracentesis 2 weeks at [facility]; catheter place in right lung(01/04/18) Past Anesthesia/Blood Transfusion Reactions: No Reported Reaction Past Psychological History: Anxiety Smoking Status: Former smoker Past Alcohol Use History: None Reported Past Drug Use History: None Reported - Past Family History Father Family Medical History: AICD/Pacemaker, Coronary Artery Disease (CAD), Diabetes Mellitus Additional Family Medical History / Comment(s): cabg Mother Family Medical History: Diabetes Mellitus, Hypertension Additional Family Medical History / Comment(s): migraines, psoriases General Exam - General Exam Comments Initial Comments: This is a well-developed well-nourished awake alert oriented times 3 male Limitations: no limitations General appearance: alert, in no apparent distress Head exam: Present: atraumatic, normocephalic, normal inspection Eye exam: Present: normal appearance, PERRL, EOMI. Absent: scleral icterus, conjunctival injection, periorbital swelling ENT exam: Present: mucous membranes dry Neck exam: Present: normal inspection. Absent: tenderness, meningismus, lymphadenopathy Respiratory exam: Present: decreased breath sounds (Decreased breath sounds on the right a pleural catheter is in the right anterior lateral chest wall). Absent: respiratory distress, wheezes, rales, rhonchi, stridor Cardiovascular Exam: Present: regular rate, normal rhythm, normal heart sounds. Absent: systolic murmur, diastolic murmur, rubs, gallop, clicks GI/Abdominal exam: Present: soft, tenderness (Mild lower quadrant tenderness palpation bilaterally which is no different from his chronic pain), normal bowel sounds. Absent: distended, guarding, rebound, rigid Extremities exam: Present: normal inspection, full ROM, normal capillary refill. Absent: tenderness, pedal edema, joint swelling, calf tenderness Back exam: Present: normal inspection Neurological exam: Present: alert, oriented X3, CN II-XII intact Psychiatric exam: Present: normal affect, normal mood Skin exam: Present: warm, dry, intact, normal color. Absent: rash Course Vital Signs 01/06/18 01/06/18 06:52 07:42 Temperature 98.4 F Pulse Rate 97 87 Respiratory 18 18 Rate Blood Pressure 142/92 117/69 O2 Sat by Pulse 96 96 Oximetry - Reevaluation(s) Reevaluation #1: 01/06/18 09:32 I did evaluate the pleural drainage tube and site no evidence of infection discharged he has since. The pleural fluid in the tube is serous in color. No evidence of any blood. Medical Decision Making - Medical Decision Making I did a long session with patient has regarding the findings. Patient was offered removal of the pleural fluid which he has declined. He was prefer to wait until the drainage is to be done on this coming Monday today being Monday by his outpatient nurse. He is not short of breath at this time this seems reasonable. I did discuss the case with Dr. Spencer who did contact the thoracic nurse practitioner who was willing to come down to drain the fluid. The patient did get relief from the pain down to a 2 with the IV fentanyl he is agreed with placement of a fentanyl patch as a bridge for the next several days which should augment his oral medications. He can follow-up with his doctor outpatient if more is required. We also did discuss the importance of hydration. - Lab Data Result diagrams: 01/06/18 07:08 01/06/18 07:08 Lab Results 01/06/18 01/06/18 01/06/18 Range/Units 07:08 07:08 07:08 WBC 2.2 L (3.8-10.6) k/uL RBC 4.69 (4.30-5.90) m/uL Hgb 13.7 (13.0-17.5) gm/dL Hct 39.4 (39.0-53.0) % MCV 83.9 (80.0-100.0) fL MCH 29.2 (25.0-35.0) pg MCHC 34.8 (31.0-37.0) g/dL RDW 17.6 H (11.5-15.5) % Plt Count 91 L (150-450) k/uL Neutrophils % 58 % Lymphocytes % 20 % Monocytes % 12 % Eosinophils % 5 % Basophils % 1 % Neutrophils # 1.3 (1.3-7.7) k/uL Lymphocytes # 0.4 L (1.0-4.8) k/uL Monocytes # 0.3 (0-1.0) k/uL Eosinophils # 0.1 (0-0.7) k/uL Basophils # 0.0 (0-0.2) k/uL Anisocytosis Slight PT (9.0-12.0) sec INR (<1.2) APTT (22.0-30.0) sec Sodium 141 (137-145) mmol/L Potassium 4.2 (3.5-5.1) mmol/L Chloride 106 (98-107) mmol/L Carbon Dioxide 26 (22-30) mmol/L Anion Gap 9 mmol/L BUN 14 (9-20) mg/dL Creatinine 0.53 L (0.66-1.25) mg/dL Est GFR (CKD-EPI)AfAm >90 (>60 ml/min/1.73 sqM) Est GFR (CKD-EPI)NonAf >90 (>60 ml/min/1.73 sqM) Glucose 198 H (74-99) mg/dL Plasma Lactic Acid Lonnie (0.7-2.0) mmol/L Calcium 9.0 (8.4-10.2) mg/dL Magnesium 1.7 (1.6-2.3) mg/dL Total Bilirubin 1.6 H (0.2-1.3) mg/dL AST 46 (17-59) U/L ALT 44 (21-72) U/L Alkaline Phosphatase 235 H (38-126) U/L Total Creatine Kinase 64 (55-170) U/L CK-MB (CK-2) 0.7 (0.0-2.4) ng/mL CK-MB (CK-2) Rel Index 1.1 Troponin I <0.012 (0.000-0.034) ng/mL Total Protein 5.8 L (6.3-8.2) g/dL Albumin 3.2 L (3.5-5.0) g/dL Amylase 40 (30-110) U/L Lipase 28 (23-300) U/L Urine Color Urine Appearance (Clear) Urine pH (5.0-8.0) Ur Specific Hostetter (1.001-1.035) Urine Protein (Negative) Urine Glucose (UA) (Negative) Urine Ketones (Negative) Urine Blood (Negative) Urine Nitrite (Negative) Urine Bilirubin (Negative) Urine Urobilinogen (<2.0) mg/dL Ur Leukocyte Esterase (Negative) 01/06/18 01/06/18 01/06/18 Range/Units 07:08 07:18 08:27 WBC (3.8-10.6) k/uL RBC (4.30-5.90) m/uL Hgb (13.0-17.5) gm/dL Hct (39.0-53.0) % MCV (80.0-100.0) fL MCH (25.0-35.0) pg MCHC (31.0-37.0) g/dL RDW (11.5-15.5) % Plt Count (150-450) k/uL Neutrophils % % Lymphocytes % % Monocytes % % Eosinophils % % Basophils % % Neutrophils # (1.3-7.7) k/uL Lymphocytes # (1.0-4.8) k/uL Monocytes # (0-1.0) k/uL Eosinophils # (0-0.7) k/uL Basophils # (0-0.2) k/uL Anisocytosis PT 12.0 (9.0-12.0) sec INR 1.3 H (<1.2) APTT 24.6 (22.0-30.0) sec Sodium (137-145) mmol/L Potassium (3.5-5.1) mmol/L Chloride (98-107) mmol/L Carbon Dioxide (22-30) mmol/L Anion Gap mmol/L BUN (9-20) mg/dL Creatinine (0.66-1.25) mg/dL Est GFR (CKD-EPI)AfAm (>60 ml/min/1.73 sqM) Est GFR (CKD-EPI)NonAf (>60 ml/min/1.73 sqM) Glucose (74-99) mg/dL Plasma Lactic Acid Lonnie 0.9 (0.7-2.0) mmol/L Calcium (8.4-10.2) mg/dL Magnesium (1.6-2.3) mg/dL Total Bilirubin (0.2-1.3) mg/dL AST (17-59) U/L ALT (21-72) U/L Alkaline Phosphatase (38-126) U/L Total Creatine Kinase (55-170) U/L CK-MB (CK-2) (0.0-2.4) ng/mL CK-MB (CK-2) Rel Index Troponin I (0.000-0.034) ng/mL Total Protein (6.3-8.2) g/dL Albumin (3.5-5.0) g/dL Amylase (30-110) U/L Lipase (23-300) U/L Urine Color Yellow Urine Appearance Clear (Clear) Urine pH 5.0 (5.0-8.0) Ur Specific Hostetter 1.026 (1.001-1.035) Urine Protein Trace H (Negative) Urine Glucose (UA) Trace H (Negative) Urine Ketones Negative (Negative) Urine Blood Negative (Negative) Urine Nitrite Negative (Negative) Urine Bilirubin Negative (Negative) Urine Urobilinogen 2.0 (<2.0) mg/dL Ur Leukocyte Esterase Negative (Negative) - Radiology Data Radiology results: report reviewed (I did review the imaging and reports are is evidence of increased pleural fluid from the x-ray done 10 days ago.), image reviewed Disposition Clinical Impression: Post-operative pain, Recurrent right pleural effusion, Chronic abdominal pain, Dehydration Disposition: HOME SELF-CARE Condition: Good Instructions: Abdominal Pain (ED), Pleural Effusion (ED), Dehydration (ED) Additional Instructions: Continue with your current medications Is patient prescribed a controlled substance at d/c from ED?: No Referrals: Cata Inman MD [Primary Care Provider] - 1-2 days
[2018-01-06 07:24] LABS: Anisocytosis Slight; Basophils % (A) 1 %; Eosinophils # (A) 0.1 k/uL (0-0.7); Eosinophils % (A) 5 %; HCT 39.4 % (39.0-53.0); HGB 13.7 gm/dL (13.0-17.5); Lymphocytes # (A) 0.4 k/uL (1.0-4.8); Lymphocytes % (A) 20 %; MCH 29.2 pg (25.0-35.0); MCHC 34.8 g/dL (31.0-37.0); MCV 83.9 fL (80.0-100.0); Mean Platelet Volume 7.5; Monocytes # (A) 0.3 k/uL (0-1.0); Monocytes % (A) 12 %; Neutrophils # (A) 1.3 k/uL (1.3-7.7); Neutrophils % (A) 58 %; RBC 4.69 m/uL (4.30-5.90); RDW 17.6 % (11.5-15.5); WBC 2.2 k/uL (3.8-10.6)
[2018-01-06 07:26] LABS: Platelet Count 91 k/uL (150-450)
[2018-01-06 07:36] LABS: INR 1.3 (<1.2); Partial Thromboplastin Time 24.6 sec (22.0-30.0)
--- NOTE | 2018-01-06 07:40 | XR ---
EXAMINATION TYPE: XR chest 2V DATE OF EXAM: 01/06/2018 COMPARISON: Prior chest x-ray 12/12/2017 HISTORY: Abdominal pain TECHNIQUE: Frontal and lateral views of the chest are obtained. FINDINGS: Right-sided Pleurx catheter, Port-A-Cath are present. Right-sided effusion is present whic h obscures the hemidiaphragm and right heart border. No evident pneumothorax. Heart size is likely st able but obscured. There are overlying cardiac leads. The patient is rotated. IMPRESSION: Increased effusion as compared to prior exam.
--- NOTE | 2018-01-06 07:45 | XR ---
Abdomen HISTORY: Pain, stage IV colorectal carcinoma Frontal view of the abdomen submitted on 2 images and correlated to prior exam dated 12/11/2017. Right-sided pleural effusion is again noted, there is been interval placement of a Pleurx catheter. T here are overlying cardiac leads. No evident bowel obstruction or pneumoperitoneum. Surgical clips pr esent in the right upper quadrant. Suspect persistent splenomegaly with associated calcifications. IMPRESSION: Findings compatible with patient's history of metastatic disease.
[2018-01-06 07:52] LABS: ALT 44 U/L (21-72); AST 46 U/L (17-59); Albumin 3.2 g/dL (3.5-5.0); Alkaline Phosphatase 235 U/L (38-126); Amylase 40 U/L (30-110); Anion Gap 9 mmol/L; Blood Urea Nitrogen 14 mg/dL (9-20); Carbon Dioxide 26 mmol/L (22-30); Chloride 106 mmol/L (98-107); Creatine Kinase 64 U/L (55-170); Glucose 198 mg/dL (74-99); Lipase 28 U/L (23-300); Magnesium 1.7 mg/dL (1.6-2.3); Potassium 4.2 mmol/L (3.5-5.1); Sodium 141 mmol/L (137-145); Total Bilirubin 1.6 mg/dL (0.2-1.3); Total Protein 5.8 g/dL (6.3-8.2)
[2018-01-06 08:03] LABS: Creatine Kinase MB 0.7 ng/mL (0.0-2.4); Troponin I <0.012 ng/mL (0.000-0.034)
[2018-01-06 08:57] LABS: Appearance,Urine Clear (Clear); Bilirubin,Urine Negative (Negative); Blood,Urine Negative (Negative); Color,Urine Yellow; Glucose,Urine (UA) Trace (Negative); Ketones,Urine Negative (Negative); Leukocyte Esterase,Urine Negative (Negative); Nitrite,Urine Negative (Negative); Protein,Urine Trace (Negative); Specific Gravity,Urine 1.026 (1.001-1.035)
[2018-01-06 09:48] VITALS: BP 100/66; PULSE 89; TEMP 98.7
== END 2018-01-06 09:46 | disposition home or self-care (01) ==
LOC: EC 06:49
DX: J90 Pleural effusion, not elsewhere classified (principal); G89.18 Other acute postprocedural pain; R10.84 Generalized abdominal pain; G89.29 Other chronic pain; E86.0 Dehydration; E11.9 Type 2 diabetes mellitus without complications; I10 Essential (primary) hypertension; F41.9 Anxiety disorder, unspecified; Z85.05 Personal history of malignant neoplasm of liver; Z85.038 Personal history of other malignant neoplasm of large intestine; Z85.72 Personal history of non-Hodgkin lymphomas; Z92.21 Personal history of antineoplastic chemotherapy; Z87.891 Personal history of nicotine dependence; Z79.84 Long term (current) use of oral hypoglycemic drugs; Z79.891 Long term (current) use of opiate analgesic; Z79.899 Other long term (current) drug therapy; Z53.29 Procedure and treatment not carried out because of patient's decision for other reasons
CPT/HCPCS: 36415; 80053; 82150; 82550; 82553; 83605; 83690; 83735; 84484; 85025; 85610; 85730; 81003; 71046; 74018; 99284; 96374; J3010

== ENCOUNTER 2018-02-15 02:12 | Emergency (ER) | payer BC ==
[2018-02-15 02:41] LABS: VBG PH 7.38 (7.31-7.41)
[2018-02-15 02:44] LABS: Anisocytosis Slight; Basophils % (A) 0 %; Eosinophils # (A) 0.1 k/uL (0-0.7); Eosinophils % (A) 1 %; HCT 38.7 % (39.0-53.0); HGB 13.3 gm/dL (13.0-17.5); Lymphocytes # (A) 0.5 k/uL (1.0-4.8); Lymphocytes % (A) 11 %; MCH 30.7 pg (25.0-35.0); MCHC 34.5 g/dL (31.0-37.0); MCV 89.1 fL (80.0-100.0); Mean Platelet Volume 6.6; Monocytes # (A) 0.3 k/uL (0-1.0); Monocytes % (A) 6 %; Neutrophils # (A) 3.3 k/uL (1.3-7.7); Neutrophils % (A) 79 %; Platelet Count 107 k/uL (150-450); RBC 4.34 m/uL (4.30-5.90); RDW 18.8 % (11.5-15.5); WBC 4.2 k/uL (3.8-10.6)
--- NOTE | 2018-02-15 02:44 | ED ---
General Adult HPI - General Stated complaint: Shortness of Breath Time Seen by Provider: 02/15/18 02:14 Source: patient, EMS, RN notes reviewed, old records reviewed Mode of arrival: EMS Limitations: no limitations - History of Present Illness Initial comments: 53-year-old male presents from home with worsening dyspnea and altered level of consciousness. Patient has history of stage IV colon cancer. He has a Pleurx catheter for drainage of right pleural effusion. Patient did receive 1 L drainage today. He normally takes off 1 L weekly. He was in his usual state until just prior to arrival. He called his and stated he did not feel right. He "stated he felt like he was going to ". At the time of arrival, patient is pale, shallow breathing, he is nonverbal but he will respond to simple commands. - Related Data Home Medications Medication Instructions Recorded Confirmed Citalopram Hydrobromide 40 mg PO DAILY 10/29/14 12/11/17 [Citalopram HBr] Glimepiride [Amaryl] 4 mg PO DAILY 10/29/14 12/11/17 metFORMIN HCL [Glucophage] 500 mg PO DAILY 10/29/14 12/11/17 Labetalol [Trandate] 200 mg PO BID 10/16/15 12/11/17 Lisinopril [Prinivil] 20 mg PO DAILY 12/11/17 12/11/17 Morphine Sulfate ER [Ms Contin] 15 mg PO Q8H 12/11/17 12/11/17 Trifluridine/Tipiracil HCl 2 tab PO BID 12/11/17 12/11/17 [Lonsurf 20 mg-8.19 mg Tablet] oxyCODONE HCL 10 mg PO Q4HR PRN 12/11/17 12/11/17 Previous Rx's Medication Instructions Recorded Nicotine 14Mg/24Hr Patch [Habitrol] 1 patch TRANSDERM DAILY #30 patch 12/12/17 Pantoprazole Sodium [Protonix] 40 mg PO DAILY #30 tablet. 12/12/17 Allergies Allergy/AdvReac Type Severity Reaction Status Date / Time No Known Allergies Allergy Verified 01/06/18 06:57 Review of Systems ROS Statement: Those systems with pertinent positive or pertinent negative responses have been documented in the HPI. ROS Other: All systems not noted in ROS Statement are negative. 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,had ileostomy-reversed, rt upper chest port.thoracentesis 2 weeks at [facility]; catheter place in right lung(01/04/18) Past Anesthesia/Blood Transfusion Reactions: No Reported Reaction Past Psychological History: Anxiety Smoking Status: Former smoker Past Alcohol Use History: None Reported Past Drug Use History: None Reported - Past Family History Father Family Medical History: AICD/Pacemaker, Coronary Artery Disease (CAD), Diabetes Mellitus Additional Family Medical History / Comment(s): cabg Mother Family Medical History: Diabetes Mellitus, Hypertension Additional Family Medical History / Comment(s): migraines, psoriases General Exam Limitations: no limitations General appearance: lethargic, in distress Head exam: Present: atraumatic, normocephalic Eye exam: Present: normal appearance, PERRL, other (No gaze deviation) ENT exam: Present: normal exam Neck exam: Present: normal inspection. Absent: meningismus Respiratory exam: Present: decreased breath sounds (Decreased breath sounds on the right) Cardiovascular Exam: Present: regular rate, normal rhythm GI/Abdominal exam: Present: soft, distended. Absent: tenderness, guarding, rebound Extremities exam: Present: normal inspection, normal capillary refill. Absent: pedal edema Neurological exam: Present: other (Patient has tremor, he is moving all extremities, no gaze deviation.) Skin exam: Present: warm, dry, pallor Course Vital Signs 02/15/18 02/15/18 02/15/18 02:28 03:00 03:45 Temperature 97.6 F Pulse Rate 64 60 64 Respiratory 19 17 16 Rate Blood Pressure 149/102 145/95 112/80 O2 Sat by Pulse 98 98 99 Oximetry 02/15/18 02/15/18 02/15/18 04:45 05:45 06:45 Temperature Pulse Rate 72 66 70 Respiratory 17 17 17 Rate Blood Pressure 101/83 101/85 96/75 O2 Sat by Pulse 100 100 100 Oximetry EKG Findings - EKG Comments: EKG Findings:: EKG: Normal sinus rhythm, T-wave flattening throughout, rate of 68, NE interval 146, QRS duration 102, QTC is 497 which is prolonged. Medical Decision Making - Medical Decision Making 53-year-old male presenting with concern for dyspnea and worsening confusion. Workup does reveal a low blood sugar. This is treated with IV dextrose. Patient remained somewhat altered after initial dextrose infusion. Repeat blood sugar is normalized at 190. Patient is fed and glucoses trended. Given the patient's past medical history and concern for dyspnea, additional workup his pain, he has normal white blood cell count, stable hemoglobin. Venous blood gas is normal. Electrolytes are unremarkable. Chest x-ray shows large right pleural effusion which patient has history of. Head CT is obtained for confusion, this is negative. After some time in the emergency department, patient's blood sugar does stabilize and mental status improves to baseline. Further history is obtained from the patient's who does state he takes metformin and glimepiride, and she states he has not been eating well throughout the day. Given history of sulfonylurea patient's blood sugar is monitored extensively in the emergency department. Patient is instructed to continue oral intake and to hold his glimepiride for the next 24-48 hours. Patient does have a glucometer, will Continue to monitor blood sugar at home. Patient will also be home with family who will monitor his mental status and blood sugar. - Lab Data Result diagrams: 02/15/18 02:18 02/15/18 02:18 Lab Results 02/15/18 02/15/18 02/15/18 Range/Units 02:18 02:18 02:18 WBC 4.2 (3.8-10.6) k/uL RBC 4.34 (4.30-5.90) m/uL Hgb 13.3 (13.0-17.5) gm/dL Hct 38.7 L (39.0-53.0) % MCV 89.1 D (80.0-100.0) fL MCH 30.7 (25.0-35.0) pg MCHC 34.5 (31.0-37.0) g/dL RDW 18.8 H (11.5-15.5) % Plt Count 107 L (150-450) k/uL Neutrophils % 79 % Lymphocytes % 11 % Monocytes % 6 % Eosinophils % 1 % Basophils % 0 % Neutrophils # 3.3 (1.3-7.7) k/uL Lymphocytes # 0.5 L (1.0-4.8) k/uL Monocytes # 0.3 (0-1.0) k/uL Eosinophils # 0.1 (0-0.7) k/uL Basophils # 0.0 (0-0.2) k/uL Anisocytosis Slight PT (9.0-12.0) sec INR (<1.2) APTT (22.0-30.0) sec VBG pH (7.31-7.41) VBG pCO2 (37-51) mmHg VBG HCO3 (24-28) mmol/L Sodium (137-145) mmol/L Potassium (3.5-5.1) mmol/L Chloride (98-107) mmol/L Carbon Dioxide (22-30) mmol/L Anion Gap mmol/L BUN (9-20) mg/dL Creatinine (0.66-1.25) mg/dL Est GFR (CKD-EPI)AfAm (>60 ml/min/1.73 sqM) Est GFR (CKD-EPI)NonAf (>60 ml/min/1.73 sqM) Glucose (74-99) mg/dL POC Glucose (mg/dL) (75-99) mg/dL POC Glu Cad Detailer ID Plasma Lactic Acid Lonnie 0.8 (0.7-2.0) mmol/L Calcium (8.4-10.2) mg/dL Total Bilirubin (0.2-1.3) mg/dL AST (17-59) U/L ALT (21-72) U/L Alkaline Phosphatase (38-126) U/L Ammonia 28 (<30) umol/L Total Creatine Kinase 53 L (55-170) U/L CK-MB (CK-2) 1.9 (0.0-2.4) ng/mL CK-MB (CK-2) Rel Index 3.6 Troponin I <0.012 (0.000-0.034) ng/mL Total Protein (6.3-8.2) g/dL Albumin (3.5-5.0) g/dL Urine Color Urine Appearance (Clear) Urine pH (5.0-8.0) Ur Specific [place] (1.001-1.035) Urine Protein (Negative) Urine Glucose (UA) (Negative) Urine Ketones (Negative) Urine Blood (Negative) Urine Nitrite (Negative) Urine Bilirubin (Negative) Urine Urobilinogen (<2.0) mg/dL Ur Leukocyte Esterase (Negative) 02/15/18 02/15/18 02/15/18 Range/Units 02:18 02:18 02:27 WBC (3.8-10.6) k/uL RBC (4.30-5.90) m/uL Hgb (13.0-17.5) gm/dL Hct (39.0-53.0) % MCV (80.0-100.0) fL MCH (25.0-35.0) pg MCHC (31.0-37.0) g/dL RDW (11.5-15.5) % Plt Count (150-450) k/uL Neutrophils % % Lymphocytes % % Monocytes % % Eosinophils % % Basophils % % Neutrophils # (1.3-7.7) k/uL Lymphocytes # (1.0-4.8) k/uL Monocytes # (0-1.0) k/uL Eosinophils # (0-0.7) k/uL Basophils # (0-0.2) k/uL Anisocytosis PT 12.2 H (9.0-12.0) sec INR 1.3 H (<1.2) APTT 24.5 (22.0-30.0) sec VBG pH 7.38 (7.31-7.41) VBG pCO2 44 (37-51) mmHg VBG HCO3 25 (24-28) mmol/L Sodium 139 (137-145) mmol/L Potassium 4.0 (3.5-5.1) mmol/L Chloride 108 H (98-107) mmol/L Carbon Dioxide 26 (22-30) mmol/L Anion Gap 5 mmol/L BUN 20 (9-20) mg/dL Creatinine 0.50 L (0.66-1.25) mg/dL Est GFR (CKD-EPI)AfAm >90 (>60 ml/min/1.73 sqM) Est GFR (CKD-EPI)NonAf >90 (>60 ml/min/1.73 sqM) Glucose 24 L* (74-99) mg/dL POC Glucose (mg/dL) (75-99) mg/dL POC Glu Cad Detailer ID Plasma Lactic Acid Lonnie (0.7-2.0) mmol/L Calcium 8.9 (8.4-10.2) mg/dL Total Bilirubin 1.5 H (0.2-1.3) mg/dL AST 56 (17-59) U/L ALT 54 (21-72) U/L Alkaline Phosphatase 292 H (38-126) U/L Ammonia (<30) umol/L Total Creatine Kinase (55-170) U/L CK-MB (CK-2) (0.0-2.4) ng/mL CK-MB (CK-2) Rel Index Troponin I (0.000-0.034) ng/mL Total Protein 6.1 L (6.3-8.2) g/dL Albumin 3.3 L (3.5-5.0) g/dL Urine Color Urine Appearance (Clear) Urine pH (5.0-8.0) Ur Specific [place] (1.001-1.035) Urine Protein (Negative) Urine Glucose (UA) (Negative) Urine Ketones (Negative) Urine Blood (Negative) Urine Nitrite (Negative) Urine Bilirubin (Negative) Urine Urobilinogen (<2.0) mg/dL Ur Leukocyte Esterase (Negative) 02/15/18 02/15/18 02/15/18 Range/Units 02:56 03:23 03:45 WBC (3.8-10.6) k/uL RBC (4.30-5.90) m/uL Hgb (13.0-17.5) gm/dL Hct (39.0-53.0) % MCV (80.0-100.0) fL MCH (25.0-35.0) pg MCHC (31.0-37.0) g/dL RDW (11.5-15.5) % Plt Count (150-450) k/uL Neutrophils % % Lymphocytes % % Monocytes % % Eosinophils % % Basophils % % Neutrophils # (1.3-7.7) k/uL Lymphocytes # (1.0-4.8) k/uL Monocytes # (0-1.0) k/uL Eosinophils # (0-0.7) k/uL Basophils # (0-0.2) k/uL Anisocytosis PT (9.0-12.0) sec INR (<1.2) APTT (22.0-30.0) sec VBG pH (7.31-7.41) VBG pCO2 (37-51) mmHg VBG HCO3 (24-28) mmol/L Sodium (137-145) mmol/L Potassium (3.5-5.1) mmol/L Chloride (98-107) mmol/L Carbon Dioxide (22-30) mmol/L Anion Gap mmol/L BUN (9-20) mg/dL Creatinine (0.66-1.25) mg/dL Est GFR (CKD-EPI)AfAm (>60 ml/min/1.73 sqM) Est GFR (CKD-EPI)NonAf (>60 ml/min/1.73 sqM) Glucose (74-99) mg/dL POC Glucose (mg/dL) 195 H 120 H (75-99) mg/dL POC Glu Cad Detailer Vane Lockett Jennifer Plasma Lactic Acid Lonnie (0.7-2.0) mmol/L Calcium (8.4-10.2) mg/dL Total Bilirubin (0.2-1.3) mg/dL AST (17-59) U/L ALT (21-72) U/L Alkaline Phosphatase (38-126) U/L Ammonia (<30) umol/L Total Creatine Kinase (55-170) U/L CK-MB (CK-2) (0.0-2.4) ng/mL CK-MB (CK-2) Rel Index Troponin I (0.000-0.034) ng/mL Total Protein (6.3-8.2) g/dL Albumin (3.5-5.0) g/dL Urine Color Yellow Urine Appearance Clear (Clear) Urine pH 5.5 (5.0-8.0) Ur Specific [place] 1.025 (1.001-1.035) Urine Protein Trace H (Negative) Urine Glucose (UA) Negative (Negative) Urine Ketones Negative (Negative) Urine Blood Negative (Negative) Urine Nitrite Negative (Negative) Urine Bilirubin Negative (Negative) Urine Urobilinogen 3.0 (<2.0) mg/dL Ur Leukocyte Esterase Negative (Negative) 02/15/18 02/15/18 02/15/18 Range/Units 04:06 04:30 04:54 WBC (3.8-10.6) k/uL RBC (4.30-5.90) m/uL Hgb (13.0-17.5) gm/dL Hct (39.0-53.0) % MCV (80.0-100.0) fL MCH (25.0-35.0) pg MCHC (31.0-37.0) g/dL RDW (11.5-15.5) % Plt Count (150-450) k/uL Neutrophils % % Lymphocytes % % Monocytes % % Eosinophils % % Basophils % % Neutrophils # (1.3-7.7) k/uL Lymphocytes # (1.0-4.8) k/uL Monocytes # (0-1.0) k/uL Eosinophils # (0-0.7) k/uL Basophils # (0-0.2) k/uL Anisocytosis PT (9.0-12.0) sec INR (<1.2) APTT (22.0-30.0) sec VBG pH (7.31-7.41) VBG pCO2 (37-51) mmHg VBG HCO3 (24-28) mmol/L Sodium (137-145) mmol/L Potassium (3.5-5.1) mmol/L Chloride (98-107) mmol/L Carbon Dioxide (22-30) mmol/L Anion Gap mmol/L BUN (9-20) mg/dL Creatinine (0.66-1.25) mg/dL Est GFR (CKD-EPI)AfAm (>60 ml/min/1.73 sqM) Est GFR (CKD-EPI)NonAf (>60 ml/min/1.73 sqM) Glucose (74-99) mg/dL POC Glucose (mg/dL) 90 121 H 103 H (75-99) mg/dL POC Glu Cad Detailer Vane Lockett Jennifer Wallison, Jennifer Plasma Lactic Acid Lonnie (0.7-2.0) mmol/L Calcium (8.4-10.2) mg/dL Total Bilirubin (0.2-1.3) mg/dL AST (17-59) U/L ALT (21-72) U/L Alkaline Phosphatase (38-126) U/L Ammonia (<30) umol/L Total Creatine Kinase (55-170) U/L CK-MB (CK-2) (0.0-2.4) ng/mL CK-MB (CK-2) Rel Index Troponin I (0.000-0.034) ng/mL Total Protein (6.3-8.2) g/dL Albumin (3.5-5.0) g/dL Urine Color Urine Appearance (Clear) Urine pH (5.0-8.0) Ur Specific [place] (1.001-1.035) Urine Protein (Negative) Urine Glucose (UA) (Negative) Urine Ketones (Negative) Urine Blood (Negative) Urine Nitrite (Negative) Urine Bilirubin (Negative) Urine Urobilinogen (<2.0) mg/dL Ur Leukocyte Esterase (Negative) 02/15/18 02/15/18 02/15/18 Range/Units 05:23 06:10 06:37 WBC (3.8-10.6) k/uL RBC (4.30-5.90) m/uL Hgb (13.0-17.5) gm/dL Hct (39.0-53.0) % MCV (80.0-100.0) fL MCH (25.0-35.0) pg MCHC (31.0-37.0) g/dL RDW (11.5-15.5) % Plt Count (150-450) k/uL Neutrophils % % Lymphocytes % % Monocytes % % Eosinophils % % Basophils % % Neutrophils # (1.3-7.7) k/uL Lymphocytes # (1.0-4.8) k/uL Monocytes # (0-1.0) k/uL Eosinophils # (0-0.7) k/uL Basophils # (0-0.2) k/uL Anisocytosis PT (9.0-12.0) sec INR (<1.2) APTT (22.0-30.0) sec VBG pH (7.31-7.41) VBG pCO2 (37-51) mmHg VBG HCO3 (24-28) mmol/L Sodium (137-145) mmol/L Potassium (3.5-5.1) mmol/L Chloride (98-107) mmol/L Carbon Dioxide (22-30) mmol/L Anion Gap mmol/L BUN (9-20) mg/dL Creatinine (0.66-1.25) mg/dL Est GFR (CKD-EPI)AfAm (>60 ml/min/1.73 sqM) Est GFR (CKD-EPI)NonAf (>60 ml/min/1.73 sqM) Glucose (74-99) mg/dL POC Glucose (mg/dL) 98 82 115 H (75-99) mg/dL POC Glu Cad Detailer Vane Lockett Jennifer Maniez, Jason Plasma Lactic Acid Lonnie (0.7-2.0) mmol/L Calcium (8.4-10.2) mg/dL Total Bilirubin (0.2-1.3) mg/dL AST (17-59) U/L ALT (21-72) U/L Alkaline Phosphatase (38-126) U/L Ammonia (<30) umol/L Total Creatine Kinase (55-170) U/L CK-MB (CK-2) (0.0-2.4) ng/mL CK-MB (CK-2) Rel Index Troponin I (0.000-0.034) ng/mL Total Protein (6.3-8.2) g/dL Albumin (3.5-5.0) g/dL Urine Color Urine Appearance (Clear) Urine pH (5.0-8.0) Ur Specific [place] (1.001-1.035) Urine Protein (Negative) Urine Glucose (UA) (Negative) Urine Ketones (Negative) Urine Blood (Negative) Urine Nitrite (Negative) Urine Bilirubin (Negative) Urine Urobilinogen (<2.0) mg/dL Ur Leukocyte Esterase (Negative) Disposition Clinical Impression: Hypoglycemia, Pleural effusion Disposition: HOME SELF-CARE Condition: Fair Instructions: Hypoglycemia in a Person with Diabetes (ED) Is patient prescribed a controlled substance at d/c from ED?: No Referrals: Cata Inman MD [Primary Care Provider] - 1-2 days Time of Disposition: 07:11
[2018-02-15 02:49] LABS: INR 1.3 (<1.2); Partial Thromboplastin Time 24.5 sec (22.0-30.0); Prothrombin Time 12.2 sec (9.0-12.0)
--- NOTE | 2018-02-15 03:05 | CT ---
EXAMINATION TYPE: CT brain wo con DATE OF EXAM: 02/15/2018 COMPARISON: NONE HISTORY: AMS CT DLP: 995.50 mGycm Automated exposure control for dose reduction was used. FINDINGS: Ventricles of normal size. There is no mass effect nor midline shift. There is no sign of intracrania l hemorrhage. The calvarium is intact. IMPRESSION: NEGATIVE CT SCAN OF THE BRAIN.
--- NOTE | 2018-02-15 03:07 | XR ---
EXAMINATION TYPE: XR chest 1V portable DATE OF EXAM: 02/15/2018 COMPARISON: 01/06/2018 HISTORY: Altered mental status TECHNIQUE: Single frontal view of the chest is obtained. FINDINGS: There is right central venous catheter with tip in the superior vena cava. There is large right pleural effusion. Left lung is clear. There is no heart failure. IMPRESSION: Large right pleural effusion is increased compared to last exam. Right lower lobe pneumo ольга is probable. No heart failure.
[2018-02-15 03:10] LABS: Creatine Kinase 53 U/L (55-170); Lactic Acid, Venous 0.8 mmol/L (0.7-2.0)
[2018-02-15 03:12] LABS: Appearance,Urine Clear (Clear); Bilirubin,Urine Negative (Negative); Blood,Urine Negative (Negative); Color,Urine Yellow; Glucose,Urine (UA) Negative (Negative); Ketones,Urine Negative (Negative); Leukocyte Esterase,Urine Negative (Negative); Nitrite,Urine Negative (Negative); PH, Urine 5.5 (5.0-8.0); Protein,Urine Trace (Negative); Specific Gravity,Urine 1.025 (1.001-1.035)
[2018-02-15 03:12] LABS: ALT 54 U/L (21-72); AST 56 U/L (17-59); Albumin 3.3 g/dL (3.5-5.0); Alkaline Phosphatase 292 U/L (38-126); Anion Gap 5 mmol/L; Blood Urea Nitrogen 20 mg/dL (9-20); Calcium 8.9 mg/dL (8.4-10.2); Carbon Dioxide 26 mmol/L (22-30); Chloride 108 mmol/L (98-107); Sodium 139 mmol/L (137-145); Total Bilirubin 1.5 mg/dL (0.2-1.3); Total Protein 6.1 g/dL (6.3-8.2)
[2018-02-15] MEDS ORDERED: MORPHINE SULFATE 2 MG/ML SYRINGE IVP STA (03:14)
[2018-02-15 03:18] LABS: Glucose 24 mg/dL (74-99)
[2018-02-15] MEDS ORDERED: DEXTROSE 50%-WATER 50 ML SYRINGE IVP STA ×3 (03:20→06:14)
[2018-02-15 03:22] LABS: Creatine Kinase MB 1.9 ng/mL (0.0-2.4); Troponin I <0.012 ng/mL (0.000-0.034)
[2018-02-15 03:38] LABS: Glucose,Whole Blood 195 mg/dL (75-99)
[2018-02-15 04:03] LABS: Glucose,Whole Blood 120 mg/dL (75-99)
[2018-02-15 04:19] LABS: Glucose,Whole Blood 90 mg/dL (75-99)
[2018-02-15 04:43] LABS: Glucose,Whole Blood 121 mg/dL (75-99)
[2018-02-15 05:10] LABS: Glucose,Whole Blood 103 mg/dL (75-99)
[2018-02-15 05:47] LABS: Glucose,Whole Blood 98 mg/dL (75-99)
[2018-02-15 06:22] LABS: Glucose,Whole Blood 82 mg/dL (75-99)
[2018-02-15 06:59] LABS: Glucose,Whole Blood 115 mg/dL (75-99)
[2018-02-15 07:18] LABS: Glucose,Whole Blood 124 mg/dL (75-99)
[2018-02-15 08:41] VITALS: BP 98/76; PULSE 87; RESP 18; TEMP 97
== END 2018-02-15 08:42 | disposition home or self-care (01) ==
LOC: EC 02:12
DX: J90 Pleural effusion, not elsewhere classified (principal); E11.649 Type 2 diabetes mellitus with hypoglycemia without coma; C18.9 Malignant neoplasm of colon, unspecified; Z85.05 Personal history of malignant neoplasm of liver; Z85.72 Personal history of non-Hodgkin lymphomas; I10 Essential (primary) hypertension; F41.9 Anxiety disorder, unspecified; Z87.891 Personal history of nicotine dependence; Z79.84 Long term (current) use of oral hypoglycemic drugs; Z79.899 Other long term (current) drug therapy
CPT/HCPCS: 36415; 93005; 80053; 82140; 82550; 82553; 82803; 83605; 84484; 85025; 85610; 85730; 81003; 71045; 70450; 99285; 96374; 96375 ×3; J2270

== ENCOUNTER → 2018-03-02 | Outpatient (CLI) | payer BC ==
[2018-03-02 16:10] LABS: Anisocytosis Slight; Poikilocytosis Slight
[2018-03-02 16:13] LABS: ALT 58 U/L (21-72); AST 51 U/L (17-59); Albumin 3.2 g/dL (3.5-5.0); Alkaline Phosphatase 303 U/L (38-126); Anion Gap 5 mmol/L; Blood Urea Nitrogen 17 mg/dL (9-20); Calcium 8.8 mg/dL (8.4-10.2); Carbon Dioxide 28 mmol/L (22-30); Chloride 106 mmol/L (98-107); Glucose 122 mg/dL (74-99); Potassium 4.1 mmol/L (3.5-5.1); Sodium 139 mmol/L (137-145); Total Bilirubin 2.9 mg/dL (0.2-1.3); Total Protein 5.8 g/dL (6.3-8.2)
[2018-03-02 16:14] LABS: HCT 34.4 % (39.0-53.0); MCH 31.7 pg (25.0-35.0); MCHC 34.9 g/dL (31.0-37.0); MCV 90.8 fL (80.0-100.0); Mean Platelet Volume 6.8; Platelet Count 154 k/uL (150-450); RBC 3.79 m/uL (4.30-5.90); RDW 19.1 % (11.5-15.5); WBC 2.1 k/uL (3.8-10.6)
[2018-03-02 16:34] LABS: Band Neutrophils % 4 %; Basophils # (M) 0.02 k/uL (0-0.2); Eosinophils # (M) 0.08 k/uL (0-0.7); Lymphocytes # (M) 0.32 k/uL (1.0-4.8); Monocytes # (M) 0.29 k/uL (0-1.0); Neutrophils % (M) 62 %; Nucleated Red Blood Cells 0 /100 WBC (0-0); Total Cells Counted 100
== END | disposition home or self-care (01) ==
LOC: LABWHC1 15:30
PROVIDERS: ATTEND Internal Medicine Medical Oncology
DX: C20 Malignant neoplasm of rectum (principal); C78.7 Secondary malignant neoplasm of liver and intrahepatic bile duct
CPT/HCPCS: 36415; 80053; 82378; 85025

== ENCOUNTER 2018-03-04 18:59 | Inpatient (IN) | payer BC ==
[2018-03-04] MEDS ORDERED: SODIUM CHLORIDE 0.9% 500 ML IV STA (20:03)
[2018-03-04] MEDS ORDERED: fentaNYL (PF) 50 MCG/ML 2 ML AMP IVP STA ×2 (20:05→22:37)
--- NOTE | 2018-03-04 20:06 | ED ---
General Adult HPI - General Chief complaint: Abdominal Pain Stated complaint: cancer pt/in pain Time Seen by Provider: 03/04/18 20:03 Source: patient, family Mode of arrival: wheelchair Limitations: no limitations - History of Present Illness Initial comments: Jon Mcgill is a 53-year-old male past medical history of stage IV cancer with known metastases to liver, status post resection. Patient is currently being treated with by mouth chemotherapy. Patient presents to the emergency department today for evaluation of worsening abdominal pain. Patient reports that he had a computed tomography scan a couple of weeks ago and there were no acute findings, he states that throughout this week she's had progressively worsening abdominal pain. He states that he is taking his home oral morphine and oxycodone but continues to have worsening abdominal pain. Patient reports he's also been somewhat constipated which is typical for him, his last bowel movement however was earlier today and offered no relief from the abdominal pain. Patient describes abdominal pain as diffuse, cramping and stabbing. Patient denies any fevers, chills, nausea or vomiting though he does report decreased appetite. He denies any chest pain, palpitations or shortness of breath but does note that he has had progressively worsening lower extremity edema, he was seen by his primary care physician for this earlier in the week and was prescribed furosemide which she has taken for 5 days with no improvement In his bilateral lower extremity edema. - Related Data Home Medications Medication Instructions Recorded Confirmed Citalopram Hydrobromide 40 mg PO DAILY 10/29/14 03/04/18 [Citalopram HBr] Labetalol [Trandate] 200 mg PO BID 10/16/15 03/04/18 Lisinopril [Prinivil] 20 mg PO DAILY 12/11/17 03/04/18 Morphine Sulfate ER [Ms Contin] 15 mg PO Q8H 12/11/17 03/04/18 Trifluridine/Tipiracil HCl 2 tab PO BID 12/11/17 03/04/18 [Lonsurf 20 mg-8.19 mg Tablet] oxyCODONE HCL 10 mg PO Q4HR PRN 12/11/17 03/04/18 Furosemide [Lasix] 20 mg PO DAILY 03/04/18 03/04/18 Potassium Chloride [Klor-Con 10] 10 meq PO DAILY 03/04/18 03/04/18 Allergies Allergy/AdvReac Type Severity Reaction Status Date / Time No Known Allergies Allergy Verified 03/04/18 19:26 Review of Systems ROS Statement: Those systems with pertinent positive or pertinent negative responses have been documented in the HPI. ROS Other: All systems not noted in ROS Statement are negative. Constitutional: Reports: weakness (Generalized). Denies: fever, chills ENT: Denies: throat pain Respiratory: Denies: cough Cardiovascular: Reports: edema. Denies: chest pain Endocrine: Reports: fatigue Gastrointestinal: Reports: abdominal pain, constipation Genitourinary: Denies: urgency, dysuria Musculoskeletal: Denies: back pain Skin: Denies: rash, lesions Neurological: Denies: headache Psychiatric: Denies: anxiety, depression Hematological/Lymphatic: Reports: easy bleeding, easy bruising 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,had ileostomy-reversed, rt upper chest port.thoracentesis 2 weeks at [facility]; catheter place in right lung(01/04/18) Past Anesthesia/Blood Transfusion Reactions: No Reported Reaction Past Psychological History: Anxiety Smoking Status: Former smoker Past Alcohol Use History: None Reported Past Drug Use History: None Reported - Past Family History Father Family Medical History: AICD/Pacemaker, Coronary Artery Disease (CAD), Diabetes Mellitus Additional Family Medical History / Comment(s): cabg Mother Family Medical History: Diabetes Mellitus, Hypertension Additional Family Medical History / Comment(s): migraines, psoriases General Exam Limitations: no limitations General appearance: alert, other (Chronically ill-appearing, Appears uncomfortable) Head exam: Present: atraumatic, normocephalic Eye exam: Present: PERRL, EOMI ENT exam: Present: normal exam Neck exam: Present: normal inspection Respiratory exam: Absent: respiratory distress Cardiovascular Exam: Present: regular rate, normal rhythm GI/Abdominal exam: Present: soft, tenderness (Diffuse tenderness with no rebound or guarding), hypoactive bowel sounds, other (Multiple well-healed surgical scars on abdomen). Absent: guarding, rebound, rigid Rectal exam: Present: deferred Extremities exam: Present: full ROM, pedal edema (One plus pitting edema bilaterally) Back exam: Present: normal inspection, full ROM Neurological exam: Present: alert, oriented X3 Psychiatric exam: Present: normal affect, normal mood Skin exam: Present: warm, dry, pallor Course Vital Signs 03/04/18 03/04/18 19:24 21:30 Temperature 98.2 F Pulse Rate 86 92 Respiratory 18 18 Rate Blood Pressure 126/82 129/77 O2 Sat by Pulse 98 96 Oximetry - Reevaluation(s) Reevaluation #1: Patient reports resolution of abdominal pain after IV fentanyl, patient requesting to eat, CT is still pending 03/04/18 22:04 Medical Decision Making - Medical Decision Making The patient was seen and evaluated, history was obtained from the patient as well as his his at bedside Labs with multiple abnormalities, however they appear to be at baseline patient' s labs. Patient's leukopenic with a white blood cell count of 1.9. Patient has elevated alk phos. Patient received IV fentanyl and reported improvement in his abdominal pain Patient went to CT and upon return was asking if he could eat, I advised patient if he feels comfortable eating he kidney. However before he was even given food patient reports that his pain began to worsen. Patient states that during his previous ER visit he was given a fentanyl patch which resolved his pain. Cristina patch was ordered. Family is concerned that his pain is progressively worsening and that his pain medications are not adequate. I agree that the patient's pain is not controlled. The patient appears quite uncomfortable. As time I feel the patient warrants admission for pain management. Patient family are agreeable. Patient care was discussed with Dr. Oliver who accepts the patient to her service for intractable abdominal pain and the patient with metastatic cancer. - Lab Data Result diagrams: 03/04/18 19:53 03/04/18 19:53 Lab Results 03/04/18 03/04/18 03/04/18 Range/Units 19:53 19:53 19:53 WBC 1.9 L* (3.8-10.6) k/uL RBC 4.22 L (4.30-5.90) m/uL Hgb 13.1 (13.0-17.5) gm/dL Hct 38.8 L (39.0-53.0) % MCV 92.0 (80.0-100.0) fL MCH 31.0 (25.0-35.0) pg MCHC 33.7 (31.0-37.0) g/dL RDW 19.2 H (11.5-15.5) % Plt Count 136 L (150-450) k/uL Neutrophils % (Manual) 70 % Lymphocytes % (Manual) 13 % Monocytes % (Manual) 14 % Eosinophils % (Manual) 3 % Neutrophils # (Manual) 1.33 (1.3-7.7) k/uL Lymphocytes # (Manual) 0.25 L (1.0-4.8) k/uL Monocytes # (Manual) 0.27 (0-1.0) k/uL Eosinophils # (Manual) 0.06 (0-0.7) k/uL Nucleated RBCs 0 (0-0) /100 WBC Manual Slide Review Performed Poikilocytosis Slight Anisocytosis Slight PT (9.0-12.0) sec INR (<1.2) APTT (22.0-30.0) sec Sodium 139 (137-145) mmol/L Potassium 4.6 (3.5-5.1) mmol/L Chloride 106 (98-107) mmol/L Carbon Dioxide 27 (22-30) mmol/L Anion Gap 6 mmol/L BUN 19 (9-20) mg/dL Creatinine 0.70 (0.66-1.25) mg/dL Est GFR (CKD-EPI)AfAm >90 (>60 ml/min/1.73 sqM) Est GFR (CKD-EPI)NonAf >90 (>60 ml/min/1.73 sqM) Glucose 104 H (74-99) mg/dL Calcium 9.1 (8.4-10.2) mg/dL Total Bilirubin 3.3 H (0.2-1.3) mg/dL AST 50 (17-59) U/L ALT 54 (21-72) U/L Alkaline Phosphatase 334 H (38-126) U/L Total Creatine Kinase 49 L (55-170) U/L CK-MB (CK-2) 1.6 (0.0-2.4) ng/mL CK-MB (CK-2) Rel Index 3.3 Troponin I <0.012 (0.000-0.034) ng/mL Total Protein 6.2 L (6.3-8.2) g/dL Albumin 3.4 L (3.5-5.0) g/dL Amylase <30 L (30-110) U/L Lipase <10 L (23-300) U/L Urine Color Urine Appearance (Clear) Urine pH (5.0-8.0) Ur Specific [place] (1.001-1.035) Urine Protein (Negative) Urine Glucose (UA) (Negative) Urine Ketones (Negative) Urine Blood (Negative) Urine Nitrite (Negative) Urine Bilirubin (Negative) Urine Urobilinogen (<2.0) mg/dL Ur Leukocyte Esterase (Negative) 03/04/18 03/04/18 Range/Units 19:53 21:13 WBC (3.8-10.6) k/uL RBC (4.30-5.90) m/uL Hgb (13.0-17.5) gm/dL Hct (39.0-53.0) % MCV (80.0-100.0) fL MCH (25.0-35.0) pg MCHC (31.0-37.0) g/dL RDW (11.5-15.5) % Plt Count (150-450) k/uL Neutrophils % (Manual) % Lymphocytes % (Manual) % Monocytes % (Manual) % Eosinophils % (Manual) % Neutrophils # (Manual) (1.3-7.7) k/uL Lymphocytes # (Manual) (1.0-4.8) k/uL Monocytes # (Manual) (0-1.0) k/uL Eosinophils # (Manual) (0-0.7) k/uL Nucleated RBCs (0-0) /100 WBC Manual Slide Review Poikilocytosis Anisocytosis PT 12.7 H (9.0-12.0) sec INR 1.4 H (<1.2) APTT 25.1 (22.0-30.0) sec Sodium (137-145) mmol/L Potassium (3.5-5.1) mmol/L Chloride (98-107) mmol/L Carbon Dioxide (22-30) mmol/L Anion Gap mmol/L BUN (9-20) mg/dL Creatinine (0.66-1.25) mg/dL Est GFR (CKD-EPI)AfAm (>60 ml/min/1.73 sqM) Est GFR (CKD-EPI)NonAf (>60 ml/min/1.73 sqM) Glucose (74-99) mg/dL Calcium (8.4-10.2) mg/dL Total Bilirubin (0.2-1.3) mg/dL AST (17-59) U/L ALT (21-72) U/L Alkaline Phosphatase (38-126) U/L Total Creatine Kinase (55-170) U/L CK-MB (CK-2) (0.0-2.4) ng/mL CK-MB (CK-2) Rel Index Troponin I (0.000-0.034) ng/mL Total Protein (6.3-8.2) g/dL Albumin (3.5-5.0) g/dL Amylase (30-110) U/L Lipase (23-300) U/L Urine Color [place] Urine Appearance Clear (Clear) Urine pH 5.5 (5.0-8.0) Ur Specific [place] 1.022 (1.001-1.035) Urine Protein Trace H (Negative) Urine Glucose (UA) Negative (Negative) Urine Ketones 1+ H (Negative) Urine Blood Negative (Negative) Urine Nitrite Negative (Negative) Urine Bilirubin 1+ H (Negative) Urine Urobilinogen 6.0 (<2.0) mg/dL Ur Leukocyte Esterase Negative (Negative) Disposition Clinical Impression: Abdominal pain, Cancer related pain Disposition: ADMITTED IP TO THIS HOSP Referrals: Cata Inman MD [Primary Care Provider] - 1-2 days Decision Time: 23:09
[2018-03-04 20:30] LABS: Anisocytosis Slight; HCT 38.8 % (39.0-53.0); HGB 13.1 gm/dL (13.0-17.5); MCHC 33.7 g/dL (31.0-37.0); Mean Platelet Volume 6.5; Platelet Count 136 k/uL (150-450); Poikilocytosis Slight; RBC 4.22 m/uL (4.30-5.90); RDW 19.2 % (11.5-15.5)
[2018-03-04 20:33] LABS: WBC 1.9 k/uL (3.8-10.6)
[2018-03-04 20:39] LABS: ALT 54 U/L (21-72); AST 50 U/L (17-59); Albumin 3.4 g/dL (3.5-5.0); Alkaline Phosphatase 334 U/L (38-126); Amylase <30 U/L (30-110); Anion Gap 6 mmol/L; Blood Urea Nitrogen 19 mg/dL (9-20); Calcium 9.1 mg/dL (8.4-10.2); Carbon Dioxide 27 mmol/L (22-30); Chloride 106 mmol/L (98-107); Glucose 104 mg/dL (74-99); INR 1.4 (<1.2); Lipase <10 U/L (23-300); Partial Thromboplastin Time 25.1 sec (22.0-30.0); Potassium 4.6 mmol/L (3.5-5.1); Prothrombin Time 12.7 sec (9.0-12.0); Sodium 139 mmol/L (137-145); Total Bilirubin 3.3 mg/dL (0.2-1.3); Total Protein 6.2 g/dL (6.3-8.2)
[2018-03-04 20:56] LABS: Creatine Kinase 49 U/L (55-170)
[2018-03-04 20:57] LABS: Eosinophils # (M) 0.06 k/uL (0-0.7); Lymphocytes # (M) 0.25 k/uL (1.0-4.8); Monocytes # (M) 0.27 k/uL (0-1.0); Neutrophils # (M) 1.33 k/uL (1.3-7.7); Neutrophils % (M) 70 %; Nucleated Red Blood Cells 0 /100 WBC (0-0); Total Cells Counted 100
[2018-03-04 21:09] LABS: Creatine Kinase MB 1.6 ng/mL (0.0-2.4); Troponin I <0.012 ng/mL (0.000-0.034)
[2018-03-04 21:21] LABS: Appearance,Urine Clear (Clear); Bilirubin,Urine 1+ (Negative); Blood,Urine Negative (Negative); Color,Urine Orange; Glucose,Urine (UA) Negative (Negative); Ketones,Urine 1+ (Negative); Leukocyte Esterase,Urine Negative (Negative); Nitrite,Urine Negative (Negative); PH, Urine 5.5 (5.0-8.0); Protein,Urine Trace (Negative); Specific Gravity,Urine 1.022 (1.001-1.035)
--- NOTE | 2018-03-04 22:39 | CT ---
EXAM: CT Abdomen and Pelvis With Intravenous Contrast CLINICAL HISTORY: ITS.REASON CT Reason: Pain TECHNIQUE: Axial computed tomography images of the abdomen and pelvis with intravenous contrast. CTDI is 21.5 mGy and DLP is mGy-cm. This CT exam was performed using one or more of the following dose reduction techniques: automated exposure control, adjustment of the mA and/or kV according to patient size, and/or use of iterative reconstruction technique. COMPARISON: 12/12/17 FINDINGS: Review of the prior study provides additional important history of colon cancer. Persistent large right pleural effusion. There appears to be a chest tube in place the distal tip is noted to be in the midline near the anterior mediastinum. There is atelectasis of the right lower lobe right middle lobe abnormal appearance to the liver with evidence of prior surgical resection. Large masses occupying most of the liver. There is a second mass 5.6 cm x 3.1 cm. This appears stable compared to prior study spleen is enlarged but no focal mass identified. There is multiple splenic calcified granulomas. There is ascites which is increased from the prior study. The gallbladder, bile ducts and pancreas are normal. The adrenal glands are unchanged compared to the prior study. The kidneys are normal in size and contour. No stones, lesions or hydronephrosis. No evidence for bowel obstruction. Aorta is normal caliber. Stable appearance to mesenteric adenopathy IMPRESSION: Interval development of ascites. Persistence severe right pleural effusion and atelectasis. No significant interval change identified in the multiple liver lesions..
[2018-03-04] MEDS ORDERED: ONDANSETRON 4 MG/2 ML VIAL IVP PRN (23:09)
[2018-03-04] MEDS ORDERED: NALOXONE 0.4 MG/ML 1 ML VIAL IV PRN (23:09)
[2018-03-04] MEDS: SODIUM CHLORIDE 0.9% 1,000 ML IV SCH (23:24)
[2018-03-04 23:53] VITALS: BMI 24.3
[2018-03-05] MEDS: HYDROmorphone 0.5 MG/0.5 ML SYRINGE IVP PRN ×7 (00:14→21:23)
[2018-03-05] MEDS: MORPHINE SULFATE ER 15 MG TABLET PO SCH ×4 (00:36→23:15)
[2018-03-05] MEDS: FUROSEMIDE 20 MG TAB PO SCH (08:16)
[2018-03-05] MEDS: LABETALOL 200 MG TAB PO SCH ×2 (08:16→21:14)
[2018-03-05] MEDS: CITALOPRAM HYDROBROMIDE 20 MG TAB PO SCH (08:17)
[2018-03-05] MEDS: LISINOPRIL 20 MG TAB PO SCH (08:17)
[2018-03-05] MEDS ORDERED: TIPIRACIL HCL PO SCH (09:00)
[2018-03-05] MEDS ORDERED: TRIFLURIDINE PO SCH (09:00)
[2018-03-05] MEDS ORDERED: TEMAZEPAM 15 MG CAP PO PRN (10:59)
[2018-03-05] MEDS ORDERED: ALPRAZolam 0.25 MG TAB PO PRN (10:59)
[2018-03-05] MEDS: SODIUM CHLORIDE 0.9% 1,000 ML IV SCH (11:54)
[2018-03-05] MEDS: PANTOPRAZOLE 40 MG/10 ML VIAL IVP SCH ×2 (12:36→21:13)
[2018-03-05] MEDS: HEPARIN SODIUM,PORCINE 5,000 UNIT/ML 1 ML VIAL SQ SCH (21:13)
[2018-03-06] MEDS: HYDROmorphone 0.5 MG/0.5 ML SYRINGE IVP PRN ×5 (01:52→22:25)
[2018-03-06] MEDS: SODIUM CHLORIDE 0.9% 1,000 ML IV SCH ×2 (01:53→15:59)
--- NOTE | 2018-03-06 05:19 | HP ---
HISTORY AND PHYSICAL DATE OF SERVICE: 03/05/2018 CHIEF COMPLAINT: Abdominal pain. HISTORY OF PRESENT ILLNESS: This 53-year-old gentleman with a past medical history of metastatic malignancy, history of diabetes, hypertension, history pneumonia, history of colorectal cancer stage IV with hepatic mets being followed by Dr. Inman and Oncology in the outpatient setting was complaining abdominal pain. The pain is diffuse in character and the pain medication adjusted and the patient admitted for further evaluation and treatment. The patient also had right pleural effusion and a PleurX drainage has been applied and the CAT scan also showed multiple abnormalities including large mass in the liver also. There is no history of any fever, rigors. No history of headache, loss of consciousness, seizures. PAST MEDICAL HISTORY: History of metastatic colorectal cancer, history of diabetes, hypertension, history pneumonia, history of bowel resection, anxiety. MEDICATIONS: Medications prior to admission include home medications are: 1. Oxycodone 10 mg q.4 p.r.n. 2. Lonsurf 2 tablets p.o. b.i.d. 3. Klor-Con 10 mEq p.o. daily. 4. MS Contin 15 mg q.8 p.r.n. 5. Prinivil 10 mg p.o. daily. 6. Trandate 200 mg p.o. b.i.d. 7. Lasix 20 mg p.o. daily. 8. Celexa 40 mg p.o. daily. ALLERGIES: Allergies are none. FAMILY HISTORY: History of AICD, CAD, diabetes mellitus type 2. SOCIAL HISTORY: No history of smoking. No history of alcohol intake. REVIEW OF SYSTEMS: ENT: No diminished hearing or diminished vision. CARDIOVASCULAR SYSTEM: No angina. RESPIRATORY SYSTEM: No cough, hemoptysis. GI: As mentioned earlier. : No dysuria. NERVOUS SYSTEM: No numbness or weakness. ALLERGY/IMMUNOLOGY: No asthma or hayfever. MUSCULOSKELETAL: As mentioned earlier. HEMATOLOGY/ONCOLOGY: No history anemia. ENDOCRINE: history of diabetes and hypothyroidism. CONSTITUTIONAL: As mentioned earlier. DERMATOLOGY: Negative. RHEUMATOLOGY: Negative. PSYCHIATRY: As mentioned earlier. PHYSICAL EXAMINATION: The patient is alert and oriented x3. Pulse is 89, blood pressure 95/66, respirations 16, temperature 97.9, pulse ox 98% on room air. HEENT: Conjunctivae normal. Oral mucosa moist. Neck is no jugular venous distention. No carotid bruit. No lymph node enlargement. CARDIOVASCULAR: S1 and S2 muffled. RESPIRATORY: Breath sounds diminished at the bases. A few scattered rhonchi. No crackles. ABDOMEN: Soft, mild diffuse tenderness present. No guarding. No rigidity. No mass palpable. LEGS: No edema, no swelling. NERVOUS SYSTEM: Higher function as mentioned earlier. Moves all 4 limbs. No focal motor or sensory deficits LYMPHATICS: No lymphadenopathy of the neck, axillae or groin. SKIN: No ulcer, rash or bleeding. LABS: WBC 1.9 otherwise platelets 136. Other labs are noted. ASSESSMENT: 1. Colorectal carcinoma with metastasis with intractable abdominal pain as well as failure of outpatient treatment. 2. Right pleural effusion on PleurX drainage. 3. Diabetes mellitus type 2. 4. Hypertension. 5. History of pneumonia. 6. History of lymphoma. 7. History of bowel resection. 8. History of anxiety. RECOMMENDATIONS AND DISCUSSION: In this 53-year-old gentleman who presented with multiple complex medical issues, we will monitor the patient closely. Continue the current medications, continues symptomatic treatment. Otherwise at this time I will adjust the pain medications. Closely follow with Hematology Oncology team. Repeat labs will be ordered. Resume the home medications. The prognosis guarded because of multiple complex medical issues and further recommendations were discussed with the patient, understands and agrees. MMODL / IJN: [id number] /
[2018-03-06 08:09] LABS: ALT 49 U/L (21-72); AST 46 U/L (17-59); Albumin 2.8 g/dL (3.5-5.0); Alkaline Phosphatase 269 U/L (38-126); Anion Gap 2 mmol/L; Anisocytosis Slight; Blood Urea Nitrogen 26 mg/dL (9-20); Calcium 8.8 mg/dL (8.4-10.2); Carbon Dioxide 29 mmol/L (22-30); Chloride 105 mmol/L (98-107); Glucose 109 mg/dL (74-99); HCT 31.9 % (39.0-53.0); HGB 10.8 gm/dL (13.0-17.5); MCHC 33.8 g/dL (31.0-37.0); MCV 91.6 fL (80.0-100.0); Mean Platelet Volume 6.9; Platelet Count 88 k/uL (150-450); Poikilocytosis Slight; Potassium 4.4 mmol/L (3.5-5.1); RBC 3.48 m/uL (4.30-5.90); RDW 18.5 % (11.5-15.5); Sodium 136 mmol/L (137-145); Total Bilirubin 2.8 mg/dL (0.2-1.3); Total Protein 5.2 g/dL (6.3-8.2)
[2018-03-06 08:18] LABS: WBC 1.5 k/uL (3.8-10.6)
[2018-03-06] MEDS: MORPHINE SULFATE ER 15 MG TABLET PO SCH ×2 (08:38→15:58)
[2018-03-06] MEDS: LISINOPRIL 20 MG TAB PO SCH (08:39)
[2018-03-06] MEDS: LABETALOL 200 MG TAB PO SCH ×2 (08:39→22:25)
[2018-03-06] MEDS: CITALOPRAM HYDROBROMIDE 20 MG TAB PO SCH (08:39)
[2018-03-06] MEDS: HEPARIN SODIUM,PORCINE 5,000 UNIT/ML 1 ML VIAL SQ SCH ×2 (08:39→22:25)
[2018-03-06] MEDS: PANTOPRAZOLE 40 MG/10 ML VIAL IVP SCH ×2 (08:39→22:25)
[2018-03-06] MEDS: FUROSEMIDE 20 MG TAB PO SCH (08:40)
[2018-03-06 10:32] LABS: Band Neutrophils % 1 %; Monocytes # (M) 0.29 k/uL (0-1.0); Neutrophils % (M) 67 %; Nucleated Red Blood Cells 0 /100 WBC (0-0); Total Cells Counted 100
[2018-03-06] MEDS ORDERED: DOCUSATE 100 MG CAP PO PRN (11:24)
--- NOTE | 2018-03-06 11:44 | US ---
EXAMINATION TYPE: US abdomen limited DATE OF EXAM: 03/06/2018 COMPARISON: CT from 2 days ago. CLINICAL HISTORY: evaluate ascites to see if candidate for para; metastatic colon CA per patient EXAM MEASUREMENTS: All abdominal quadrants were assessed by US and largest ascites pocket is noted RLQ and size = 7.0cm A/P. Moderate size focal fluid collection in the right lower quadrant is marked for possible paracentesis. No significant fluid is seen in right upper quadrant or left upper quadrant, tiny amount of fluid is noted in left lower quadrant. Fluid does not completely layer which suggests nonsimple etiology. Findings correlate with recent CT. IMPRESSION: As above.
[2018-03-06] MEDS: SENNOSIDES-DOCUSATE SODIUM 1 EACH TAB PO SCH (12:10)
[2018-03-06 14:40] VITALS: RESP 16
--- NOTE | 2018-03-06 16:35 | PN ---
PROGRESS NOTE DATE OF SERVICE: 03/06/2018. INTERVAL HISTORY: This 53-year-old gentleman who was admitted with colorectal carcinoma with metastasis had intractable abdominal pain. Medication has been changed. No chest pain. No palpitations. No fever. An abdominal ultrasound was done today which showed focal fluid collection in the right lower quadrant was noted. No chest pain. No palpitations. No fever. PHYSICAL EXAM: Alert and oriented x3. Pulse is 91, blood pressure 108/62, respirations 16, temperature 97.8, pulse ox 98% on room air. HEENT: Conjunctivae normal. Oral mucosa moist. Neck is no jugular venous distention. No carotid bruit. No lymph node enlargement. Cardiovascular systems: S1, S2. Respiration: Breath sounds diminished in the bases. No rhonchi and no crackles. ABDOMEN: Soft, mild diffuse tenderness present. Ascites present. Legs are no edema, no swelling. Central nervous system: No focal deficits. LABS: WBC 7.2, hemoglobin 10.8, platelets 88. Sodium 132, potassium 4.4. ASSESSMENT: 1. Colorectal carcinoma with metastasis and intractable abdominal pain as well as failure of outpatient treatment. 2. Right pleural effusion on a PleurX drainage. 3. Ascites, low platelets. 4. Diabetes type 2. 5. Hypertension. 6. History of pneumonia. 7. History of lymphoma. 8. History of bowel resection. 9. History of anxiety. RECOMMENDATIONS AND DISCUSSION: Recommend to continue current medications. Continue symptomatic treatment. Closely follow with Hematology/Oncology. Ascites increase in the CT scan. Guarded prognosis. Further recommendations to follow. MMODL / IJN: [id number] /
--- NOTE | 2018-03-06 19:11 | P.CONS ---
History of Present Illness - Reason for Consult Consult date: 03/06/18 metastatic rectal adenocarcinoma Requesting physician: Radhames Amaro - Chief Complaint RUQ pain, progressive - History of Present Illness Mr. Mcgill is a very pleasant male pt with a very complicated malignancy Hx which I will summarize later. Pt admitted for progressive RUQ pain x 1 week, current analgesic regimen was no longer effective, pain sharp, stabbing, cramping, severe, constant, associated with pogressive BLE swelling, abd distension, poor appetite, denies nuasea, vomiting diarrhea, mild constipation from pain meds that he can treat. No fevers, VERNON, bleeding. No other c/o, he is due for treatment follow up CT results at [facility]. Malignancy History: pt presented with intermittent bleeding per rectum x 1 year in 2014, associated with increased frequency of bowel movements,feeling of incomplete evacuation. Colonoscopy with Dr. Delvalle on 09/01/14 revealed polyps in the transverse, descending and sigmoid colons, all removed, tubular adenomas. A mass was found in the rectum, extending from 10-15 cm from the anal verge, biopsy positive for adenocarcinoma, staging CT on 09/09/14, borderline prominent jessica-rectal nodes and irregular hypodensity, some peripheral enhancement right hepatic dome, CEA of 298, PET positive in the aforementioned mass and a spot adjacent to it. EUS done at [facility] on 09/25/14 confirming T3 N2 disease, liver biopsy 10/05/14, confirmed metastatic adenocarcinoma. He was felt to be a candidate for liver resection with curative intent and referred to [facility]. Neoadjuvant chemo with FOLFOX + Vectibix. Pt had embolization of liver mets then resection of the liver on 04/06/15 with extensive necrosis and few scattered residual nodules of viable cancer cells. He started RT with concurrent Xeloda on 05/05/15, completed 06/19/15. CT CAP on 06/30/15 was reviewed at [facility]. Post surgical/procedure changes were seen in the liver. He had LAR on 08/24/15, with a diverting ostomy. Follow up CT scan for a new baseline, in late 09/05 was concerning for recurrence in the liver. A PET was done on revealing 4-5 lesions with suspicious uptake. Pt had more chemo, completed treatment in 02/03. He had ostomy reversal on 03/14/16. CT on 04/28/16 at [facility] showed progression in the same site in the liver. [facility] recommended FOLFIRI + Avastin, treatment CT after cycle 3 mentioned possible progression of disease in the liver, new rt pleural effusion noted. A PET and thoracentesis were ordered, cytology on the pleural fluid was negative, PET uptake in the liver, not elsewhere. Pt proceeded to radiofrequqncy ablation 08/08/16. Resumed chemo after, until 12/05 when it was stopped due to cumulative, disabling fatigue. CT 04/06 showed possible progression in the right lobe. CEA was elevated to 55.6 vs 6.2 in 01/04. PET scan showed uptake in 2 new lesions He was referred back to [facility], and also to [facility]. He has had RFA implants and 3 mo ago started Lonsurf. Review of Systems 10 point ROS is as stated in HPI Past Medical History Past Medical History: Cancer, Diabetes Mellitus, Hypertension, Pneumonia Additional Past Medical History / Comment(s): liver cancer, colorectal cancer stage 4(had sx, radiation and is recieving chemo) , lymphoma, Pleural effusion History of Any Multi-Drug Resistant Organisms: None Reported Past Surgical History: Bowel Resection Additional Past Surgical History / Comment(s): colonoscopy/bx,liver bx 10/22 liver resected d/t cancer-stated has coils in liver, 08-24-15 pt stated he had 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,had ileostomy-reversed, rt upper chest port.thoracentesis 2 weeks at [facility]; catheter place in right lung(01/04/18) Past Anesthesia/Blood Transfusion Reactions: No Reported Reaction Past Psychological History: Anxiety Additional Psychological History / Comment(s): pt lives with his ,2 children. owns a cleaning buisness, no service Smoking Status: Never smoker Past Alcohol Use History: None Reported Additional Past Alcohol Use History / Comment(s): pt enjoys a rare cigar, past rare use of alcohol, Past Drug Use History: None Reported Additional Drug Use History / Comment(s): tried marijuana for appetite but stopped because he did'nt like it - Past Family History Father Family Medical History: AICD/Pacemaker, Coronary Artery Disease (CAD), Diabetes Mellitus Additional Family Medical History / Comment(s): cabg Mother Family Medical History: Diabetes Mellitus, Hypertension Additional Family Medical History / Comment(s): migraines, psoriases Medications and Allergies Home Medications Medication Instructions Recorded Confirmed Type Citalopram Hydrobromide 40 mg PO DAILY 10/29/14 03/05/18 History [Citalopram HBr] Labetalol [Trandate] 200 mg PO BID 10/16/15 03/05/18 History Lisinopril [Prinivil] 20 mg PO DAILY 12/11/17 03/05/18 History Morphine Sulfate ER [Ms Contin] 15 mg PO Q8H 12/11/17 03/05/18 History Trifluridine/Tipiracil HCl 2 tab PO BID 12/11/17 03/05/18 History [Lonsurf 20 mg-8.19 mg Tablet] oxyCODONE HCL 10 mg PO Q4HR PRN 12/11/17 03/05/18 History Furosemide [Lasix] 20 mg PO DAILY 03/04/18 03/05/18 History Potassium Chloride [Klor-Con 10] 10 meq PO DAILY 03/04/18 03/05/18 History Allergies Allergy/AdvReac Type Severity Reaction Status Date / Time No Known Allergies Allergy Verified 03/05/18 09:25 Physical Exam Vitals: Vital Signs Temp Pulse Resp BP Pulse Ox 03/06/18 14:38 97.8 F 91 16 108/63 93 L 03/06/18 09:15 93 100/64 03/06/18 06:06 94/64 03/06/18 05:55 97.4 F L 74 18 87/50 93 L 03/05/18 21:30 97.6 F 92 16 127/58 94 L Intake and Output 03/06/18 03/06/18 03/06/18 06:59 14:59 22:59 Intake Total 825 600 Balance 825 600 Intake: Intake, IV Titration 825 600 Amount Sodium Chloride 0.9% 1, 825 600 000 ml @ 75 mls/hr IV . [id number] [facility] Rx#:[id number] Other: Voiding Method Toilet Toilet # Voids 3 - Constitutional muscle wasting in face, neck and upper extremities General appearance: average body habitus, cooperative, mild distress - EENT Eyes: anicteric sclerae, EOMI ENT: hearing grossly normal, normal oropharynx - Neck Neck: no lymphadenopathy - Respiratory Respiratory: right: CTA, left: diminished - Cardiovascular Heart sounds: normal: S1, S2 leg Peripheral Edema: bilateral: 2+, Pitting - Gastrointestinal incisional midline hernia General gastrointestinal: distended, soft, tenderness Localized gastrointestinal: tender: RUQ, epigastric periumbilical - Integumentary Integumentary: pale - Neurologic Neurologic: CNII-XII intact - Musculoskeletal Musculoskeletal: strength equal bilaterally - Psychiatric Psychiatric: A&O x's 3, appropriate affect, intact judgment & insight Results CBC & Chem 7: 03/06/18 07:33 03/06/18 07:33 Labs: Abnormal Lab Results - Last 24 Hours (Table) 03/06/18 03/06/18 Range/Units 07:33 07:33 WBC 1.5 L* (3.8-10.6) k/uL RBC 3.48 L (4.30-5.90) m/uL Hgb 10.8 L (13.0-17.5) gm/dL Hct 31.9 L (39.0-53.0) % RDW 18.5 H (11.5-15.5) % Plt Count 88 L (150-450) k/uL Neutrophils # (Manual) 1.00 L (1.3-7.7) k/uL Lymphocytes # (Manual) 0.20 L (1.0-4.8) k/uL Sodium 136 L (137-145) mmol/L BUN 26 H (9-20) mg/dL Glucose 109 H (74-99) mg/dL Total Bilirubin 2.8 H (0.2-1.3) mg/dL Alkaline Phosphatase 269 H (38-126) U/L Total Protein 5.2 L (6.3-8.2) g/dL Albumin 2.8 L (3.5-5.0) g/dL Comments: Abd US report reviewed CT scan - abdomen: report reviewed CT scan - pelvis: report reviewed Assessment and Plan (1) Cancer related pain Narrative/Plan: Long acting pain med increased, additional breakthrough IV pain med available. Will re-evaluate in AM Senna for prevention of narcotic induced constipation US abd ordered to evaluate ascites as may be contributing to pain. Paracentesis recommended if enough fluid. Current Visit: Yes Status: Acute Priority: High Code(s): G89.3 - NEOPLASM RELATED PAIN (ACUTE) (CHRONIC) SNOMED Code(s): 162616066 (2) Rectal adenocarcinoma metastatic to liver Narrative/Plan: Pt being seen and treated at [facility] with trifluridine/tipiracil for 3 months and states doing fairly well on it. Pt just had CT treatment follow up and is due for results this Monday. Keep current follow up plan. Current Visit: No Status: Chronic Priority: Medium Code(s): C20 - MALIGNANT NEOPLASM OF RECTUM SNOMED Code(s): 119363433 Plan: Doctor attests: I performed a history and physical examination of this patient, discussed with dictator. I agree with dictators note, documented as a scribe.
[2018-03-06] MEDS: MORPHINE SULFATE ER 30 MG TABLET PO SCH (22:24)
[2018-03-07] MEDS: MORPHINE SULFATE ER 30 MG TABLET PO SCH (05:47)
[2018-03-07] MEDS: HYDROmorphone 0.5 MG/0.5 ML SYRINGE IVP PRN (05:48)
[2018-03-07] MEDS: SODIUM CHLORIDE 0.9% 1,000 ML IV SCH (05:50)
[2018-03-07] MEDS: PANTOPRAZOLE 40 MG/10 ML VIAL IVP SCH (07:34)
[2018-03-07] MEDS: HEPARIN SODIUM,PORCINE 5,000 UNIT/ML 1 ML VIAL SQ SCH (07:34)
[2018-03-07] MEDS: SENNOSIDES-DOCUSATE SODIUM 1 EACH TAB PO SCH (07:34)
[2018-03-07 07:35] LABS: Anisocytosis Slight; HCT 33.9 % (39.0-53.0); HGB 11.5 gm/dL (13.0-17.5); MCV 91.3 fL (80.0-100.0); Mean Platelet Volume 8.1; Poikilocytosis Slight; RBC 3.71 m/uL (4.30-5.90); RDW 18.3 % (11.5-15.5)
[2018-03-07] MEDS: CITALOPRAM HYDROBROMIDE 20 MG TAB PO SCH (07:35)
[2018-03-07] MEDS: FUROSEMIDE 20 MG TAB PO SCH (07:35)
[2018-03-07] MEDS: LABETALOL 200 MG TAB PO SCH (07:36)
[2018-03-07] MEDS: LISINOPRIL 20 MG TAB PO SCH (07:36)
[2018-03-07 07:48] LABS: Platelet Count 73 k/uL (150-450); WBC 1.8 k/uL (3.8-10.6)
[2018-03-07 08:21] LABS: ALT 50 U/L (21-72); AST 57 U/L (17-59); Albumin 2.8 g/dL (3.5-5.0); Alkaline Phosphatase 276 U/L (38-126); Anion Gap 1 mmol/L; Blood Urea Nitrogen 28 mg/dL (9-20); Calcium 8.7 mg/dL (8.4-10.2); Carbon Dioxide 32 mmol/L (22-30); Chloride 105 mmol/L (98-107); Glucose 125 mg/dL (74-99); Potassium 4.9 mmol/L (3.5-5.1); Sodium 138 mmol/L (137-145); Total Bilirubin 2.5 mg/dL (0.2-1.3); Total Protein 5.2 g/dL (6.3-8.2)
[2018-03-07 08:31] LABS: Monocytes # (M) 0.34 k/uL (0-1.0); Neutrophils # (M) 0.95 k/uL (1.3-7.7); Neutrophils % (M) 53 %; Nucleated Red Blood Cells 0 /100 WBC (0-0); Total Cells Counted 100
[2018-03-07 08:36] LABS: INR 1.4 (<1.2); Prothrombin Time 13.5 sec (9.0-12.0)
[2018-03-07 13:38] VITALS: BP 106/61; PULSE 89; TEMP 97.3
--- NOTE | 2018-03-07 14:13 | US ---
EXAMINATION TYPE: US paracentesis abd w/image DATE OF EXAM: 03/07/2018 COMPARISON: NONE HISTORY: Ascites. PROCEDURE: Maximal barrier technique was utilized. The skin overlying a suitable pocket of fluid was localized with ultrasound and the overlying skin was prepped and draped. Ultrasound was utilized with sterile technique. Lidocaine was used for local anesthesia and a skin lubna made with a scalpel. Catheter was advanced under direct ultrasound guidance into a suitable pocket of fluid and approximately 2 liters of yellow fluid were removed. Catheter was withdrawn and hemostasis achieved. There is no immediate complication; the patient is discharged in stable condition. IMPRESSION: STATUS POST ULTRASOUND GUIDED PARACENTESIS FOR PALLIATION OF ASCITES. THIS PROCEDURE WA S PERFORMED BY THE UNDERSIGNED. Specimen sent for laboratory analysis.
--- NOTE | 2018-03-07 17:01 | P.PN ---
Subjective Progress Note Date: 03/07/18 Principal diagnosis: intractable pain from malignancy Patient seen in follow-up, he states less intense pain today in the upper parts of his abdomen, still feels a little distended. His home medications were reconciled correctly, patient not feeling he is needing a gross adjustment in any of his pain med doses. He is still interested in having paracentesis if it does not hold up his discharge [facility]. Patient denies fevers, tolerating oral intake, no vomiting, he treats constipation when necessary Objective - Vital Signs Vital signs: Vital Signs Temp 97.3 F L 03/07/18 13:37 Pulse 89 03/07/18 13:37 Resp 16 03/07/18 13:37 BP 106/61 03/07/18 13:37 Pulse Ox 97 03/07/18 13:37 Intake & Output 03/06/18 03/07/18 03/07/18 18:59 06:59 18:59 Intake Total 600 1190 Balance 600 1190 Intake: IV 600 Sodium Chloride 0.9% 1, 600 000 ml @ 75 mls/hr IV . [id number] [facility] Rx#:[id number] Intake, IV Titration 600 Amount Sodium Chloride 0.9% 1, 600 000 ml @ 75 mls/hr IV . [id number] [facility] Rx#:[id number] Oral 590 Other: Voiding Method Toilet Toilet Toilet # Voids 2 - Constitutional General appearance: Present: cooperative, no acute distress, thin - EENT Eyes: Present: abnormal pupil - Respiratory Respiratory: bilateral: CTA - Cardiovascular Heart sounds: normal: S1, S2 - Gastrointestinal General gastrointestinal: Present: distended, normal bowel sounds, tenderness Localized gastrointestinal: tender: epigastric periumbilical (mild, improved from exam yesterday) - Integumentary Integumentary: Present: pale - Neurologic Neurologic: Present: CNII-XII intact - Musculoskeletal Musculoskeletal: Present: strength equal bilaterally - Psychiatric Psychiatric: Present: A&O x's 3, appropriate affect, intact judgment & insight - Labs CBC & Chem 7: 03/07/18 07:12 03/07/18 07:12 Labs: Abnormal Lab Results - Last 24 Hours (Table) 03/07/18 03/07/18 03/07/18 Range/Units 07:12 07:12 08:02 WBC 1.8 L* (3.8-10.6) k/uL RBC 3.71 L (4.30-5.90) m/uL Hgb 11.5 L (13.0-17.5) gm/dL Hct 33.9 L (39.0-53.0) % RDW 18.3 H (11.5-15.5) % Plt Count 73 L (150-450) k/uL Neutrophils # (Manual) 0.95 L (1.3-7.7) k/uL Lymphocytes # (Manual) 0.50 L (1.0-4.8) k/uL PT 13.5 H (9.0-12.0) sec INR 1.4 H (<1.2) Carbon Dioxide 32 H (22-30) mmol/L BUN 28 H (9-20) mg/dL Glucose 125 H (74-99) mg/dL Total Bilirubin 2.5 H (0.2-1.3) mg/dL Alkaline Phosphatase 276 H (38-126) U/L Total Protein 5.2 L (6.3-8.2) g/dL Albumin 2.8 L (3.5-5.0) g/dL Assessment and Plan (1) Cancer related pain Narrative/Plan: Improved with few additional doses of IV pain medication. patient feels his current analgesic regimen we will be adequate Status: Acute Priority: High Code(s): G89.3 - NEOPLASM RELATED PAIN (ACUTE) (CHRONIC) SNOMED Code(s): 769855574 (2) Rectal adenocarcinoma metastatic to liver Narrative/Plan: patient due for follow-up at [facility] tomorrow Status: Chronic Priority: Medium Code(s): C20 - MALIGNANT NEOPLASM OF RECTUM SNOMED Code(s): 856613649 Plan: Patient is okay for discharge from an oncology standpoint once he has had paracentesis and cleared by Interventional Radiologist and Attending.
--- NOTE | 2018-03-07 17:51 | DS ---
DISCHARGE SUMMARY DATE OF SERVICE: 03/07/2018. FINAL DIAGNOSES: 1. Colorectal carcinoma with METS status intractable abdominal pain as well as failure of outpatient treatment. 2. Right pleural effusion on PleurX drainage. 3. Ascites, new onset, loculated. 4. Diabetes type 2. 5. Hypertension. 6. History pneumonia. 7. History of lymphoma. 8. History of bowel resection. 9. History of anxiety. DISCHARGE DISPOSITION: The patient is being discharged in stable condition with guarded prognosis. Discharge cleared by Oncology. HISTORY OF PRESENT ILLNESS: This 53-year-old gentleman with a past medical history of multiple medical problems, was admitted with intractable abdominal pain secondary to colorectal carcinoma. The patient was seen by the Oncology. Medications were adjusted. Patient improved significantly. The patient also had a small amount of ascites which is not able to be aspirated according to interventional Radiology. Not enough to be aspirated and according to the nurse, Cardiology. On exam, vitals are stable. CARDIOVASCULAR: S1, S2. Abdomen soft. Mild diffuse distention. Legs: No edema. No swelling. Central nervous system: No focal deficits. Patient improved significantly. WBC 1.1, hemoglobin 11.5. Patient will be discharged in stable condition with guarded prognosis. DISCHARGE ADVICE AND RECOMMENDATIONS: 1. Diet is cardiac, soft. 2. Activity limited until follow up. 3. Follow up with Dr. Inman in 2-3 days. 4. Follow up with Dr. Montalvo as advised. MEDICATIONS ARE: 1. Celexa 40 mg p.o. daily. 2. Lasix 20 mg. 3. Trandate 200 mg p.o. b.i.d. 4. Prinivil 20 mg p.o. daily. 5. MS Contin 50 mg p.o. q.8. 6. Klor-Con 10 mEq p.o. daily. 7. 20 mg 2 tablets p.o. b.i.d. 8. Xanax 0.25 mg t.i.d. 9. Colace 100 mg p.o. b.i.d. 10.Morphine sulfate ER 30 mg q.8 per oncologist. MMODL / IJN: [id number] /
== END 2018-03-07 14:51 | disposition home or self-care (01) | DRG 948 ==
LOC: EC 18:59 → 5ONC 23:11 → OBSVTOIN 03-05 15:01
PROVIDERS: ADMIT Internal Medicine; ATTEND Internal Medicine
PROC: 0W9G3ZZ Drainage of Peritoneal Cavity, Percutaneous Approach (ICD-10-PCS; principal; 2018-03-07)
DX: G89.3 Neoplasm related pain (acute) (chronic) (principal); C20 Malignant neoplasm of rectum; C78.7 Secondary malignant neoplasm of liver and intrahepatic bile duct; E11.9 Type 2 diabetes mellitus without complications; I10 Essential (primary) hypertension; Z92.3 Personal history of irradiation; Z92.21 Personal history of antineoplastic chemotherapy; Z82.49 Family history of ischemic heart disease and other diseases of the circulatory system; R18.8 Other ascites
CPT/HCPCS: 36415; 49083; 74177; 76705; 80053; 81003; 82042; 82150; 82550; 82553; 83690; 84484; 85025; 85610; 85730; 87070; 87075; 87205; 88108; 88305; 88341; 88342; 96361; 96374; 99285

== ENCOUNTER 2018-03-08 09:18 | Emergency (ER) | payer BC ==
[2018-03-08 09:28] VITALS: RESP 18
--- NOTE | 2018-03-08 10:19 | XR ---
EXAMINATION TYPE: XR chest 2V DATE OF EXAM: 03/08/2018 COMPARISON: 02/15/2018 HISTORY: Chest pain. History of recent paracentesis, liver cancer, colorectal cancer, lymphoma, recur rent pleural effusion, and prior thoracentesis. TECHNIQUE: Frontal and lateral views of the chest are obtained. FINDINGS: There is a similar-appearing moderate to large right pleural effusion with associated righ t sided airspace disease, likely compressive atelectasis. Left lung remains clear. The cardiac medias tinal silhouette is slightly shifted to the left due to mass effect. Right-sided Mediport is overall unchanged. Osseous structures are grossly intact. IMPRESSION: Redemonstration of a moderate to large right pleural effusion with associated right-side d airspace disease, likely atelectasis and resultant slight leftward mediastinal shift due to mass ef fect.
[2018-03-08] MEDS ORDERED: MORPHINE SULFATE 4 MG/ML SYRINGE IVP STA (10:20)
--- NOTE | 2018-03-08 10:34 | ED ---
Recheck HPI - General Source: patient, RN notes reviewed, old records reviewed Mode of arrival: ambulatory Limitations: no limitations <Sheela Domingo - Last Filed: 03/08/18 11:34> <Nicole Liu - Last Filed: 03/08/18 14:50> - General Chief Complaint: Recheck/Abnormal Lab/Rx Stated Complaint: pain Time Seen by Provider: 03/08/18 09:40 - History of Present Illness Initial Comments: Patient is a 53-year-old male with stage IV colon cancer with multiple metastases presents emergency department today for pain management. Patient reports that he was recently admitted for pancreatitis and was discharged yesterday without pain medication. He is currently on morphine and oxycodone from his oncologist. Patient states that he sees a psychologist at [facility] tomorrow morning at 8 AM. Patient states that last time he had severe pain is compatible patch. Patient states that he is searching for pain relief. He reports that when he was recently admitted they did diagnostic paracentesis over his abdomen. He reports that he's having pain over the incision site from his paracentesis site. He also has a pleural ask catheters in the right lung. He reports it was drained while he was admitted. (Sheela Domingo) - Related Data Home Medications Medication Instructions Recorded Confirmed Citalopram Hydrobromide 40 mg PO DAILY 10/29/14 03/08/18 [Citalopram HBr] Labetalol [Trandate] 200 mg PO BID 10/16/15 03/08/18 Lisinopril [Prinivil] 20 mg PO DAILY 12/11/17 03/08/18 Morphine Sulfate ER [Ms Contin] 30 mg PO Q8H 12/11/17 03/08/18 Trifluridine/Tipiracil HCl 2 tab PO BID 12/11/17 03/08/18 [Lonsurf 20 mg-8.19 mg Tablet] Furosemide [Lasix] 20 mg PO DAILY 03/04/18 03/08/18 Potassium Chloride [Klor-Con 10] 10 meq PO DAILY 03/04/18 03/08/18 Sennosides-Docusate Sodium 2 tab PO DAILY 03/08/18 03/08/18 [Senokot-S] Previous Rx's Medication Instructions Recorded ALPRAZolam [Xanax] 0.25 mg PO TID PRN #20 tab 03/07/18 oxyCODONE HCL [OxyIR] 15 mg PO Q4HR PRN tab 03/07/18 fentaNYL 75MCG/HR PATCH [Duragesic 75 mcg TRANSDERM Q72H 3 Days #1 03/08/18 75MCG/HR] patch Allergies Allergy/AdvReac Type Severity Reaction Status Date / Time No Known Allergies Allergy Verified 03/08/18 10:00 Review of Systems ROS Other: All systems not noted in ROS Statement are negative. <Sheela Domingo - Last Filed: 03/08/18 11:34> ROS Other: All systems not noted in ROS Statement are negative. <Nicole Liu - Last Filed: 03/08/18 14:50> ROS Statement: Those systems with pertinent positive or pertinent negative responses have been documented in the HPI. Past Medical History Past Medical History: Cancer, Diabetes Mellitus, Hypertension, Pneumonia Additional Past Medical History / Comment(s): liver cancer, colorectal cancer stage 4(had sx, radiation and is recieving chemo) , lymphoma, Pleural effusion History of Any Multi-Drug Resistant Organisms: None Reported Past Surgical History: Bowel Resection Additional Past Surgical History / Comment(s): colonoscopy/bx,liver bx 3/4 liver resected d/t cancer-stated has coils in liver, 1--16 pt stated he had 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,had ileostomy-reversed, rt upper chest port.thoracentesis 2 weeks at [facility]; catheter place in right lung(01/04/18) Past Anesthesia/Blood Transfusion Reactions: No Reported Reaction Past Psychological History: Anxiety Smoking Status: Never smoker Past Alcohol Use History: None Reported Past Drug Use History: None Reported - Past Family History Father Family Medical History: AICD/Pacemaker, Coronary Artery Disease (CAD), Diabetes Mellitus Additional Family Medical History / Comment(s): cabg Mother Family Medical History: Diabetes Mellitus, Hypertension Additional Family Medical History / Comment(s): migraines, psoriases <Sheela Domingo - Last Filed: 03/08/18 11:34> General Exam Limitations: no limitations General appearance: alert, in no apparent distress Head exam: Present: atraumatic, normocephalic, normal inspection Eye exam: Present: normal appearance, PERRL, EOMI. Absent: scleral icterus, conjunctival injection, periorbital swelling ENT exam: Present: normal exam, mucous membranes moist Neck exam: Present: normal inspection. Absent: tenderness, meningismus, lymphadenopathy Respiratory exam: Present: normal lung sounds bilaterally. Absent: respiratory distress, wheezes, rales, rhonchi, stridor Cardiovascular Exam: Present: regular rate, normal rhythm, normal heart sounds. Absent: systolic murmur, diastolic murmur, rubs, gallop, clicks GI/Abdominal exam: Present: soft, normal bowel sounds. Absent: distended, tenderness, guarding, rebound, rigid Extremities exam: Present: normal inspection, full ROM, normal capillary refill. Absent: tenderness, pedal edema, joint swelling, calf tenderness Back exam: Present: normal inspection Neurological exam: Present: alert, oriented X3, CN II-XII intact Psychiatric exam: Present: normal affect, normal mood Skin exam: Present: warm, dry, intact, normal color. Absent: rash <Sheela Domingo - Last Filed: 03/08/18 11:34> Course <Sheela Domingo - Last Filed: 03/08/18 11:34> <Nicole Liu - Last Filed: 03/08/18 14:50> Vital Signs 03/08/18 03/08/18 09:23 11:51 Temperature 98 F 98.1 F Pulse Rate 95 87 Respiratory 18 18 Rate Blood Pressure 120/86 140/94 O2 Sat by Pulse 97 98 Oximetry - Reevaluation(s) Reevaluation #1: 03/08/18 11:34 Patient reports that his pain is decreasing any melena 5 out of 10. We're able to obtain the Port-A-Cath drainage kit. Family states that the dentist for him in the past. is comfortable doing a drainage herself. She drained approximately one bottle fluid filling. Lung sounds are improved on the right lower lung base. (Sheela Domingo) Medical Decision Making - Radiology Data Radiology results: report reviewed <Sheela Domingo - Last Filed: 03/08/18 11:34> <Nicole Liu - Last Filed: 03/08/18 14:50> - Medical Decision Making I saw and evaluated the patient independently of the PA. I evaluated the patient earlier in this week during his previous admission. Patient reports pain management is his concern, and addition he does not have any bottles at home to drain his right Pleurx catheter. Patient was given a bottle and was able whites assistance to drain the Pleurx catheter. He was also given fentanyl and a fentanyl patch. Patient reported significant improvement in his pain after Cristina. Patient has previously discussed with his oncologist the need for increasing doses of narcotics and oncologist said they would consider phenyl patches in the future. Patient does have a follow-up appointment with his oncologist tomorrow morning. Patient will be discharged home with Cristina patch in place and a perception for 1 additional Cristina patch to apply tomorrow morning when he removes the current patch. Patient expressed understanding of this. (Nicole Liu) - Radiology Data Redemonstration of the moderate to large right pleural effusion airspace. Likely atelectasis resultant left mediastinal shift due to mass effect. ( Sheela Domingo) Disposition Is patient prescribed a controlled substance at d/c from ED?: Yes When asked, does pt state using other controlled substances?: Yes If prescribed controlled substance>3 days was MAPS reviewed?: Prescribed <3 Days If opioid is for acute pain is fill amount 7 days or less?: Yes If Rx opioid, was Start Talking consent form obtained?: Yes Time of Disposition: 11:36 <Sheela Domingo - Last Filed: 03/08/18 11:34> <Nicole Liu - Last Filed: 03/08/18 14:50> Clinical Impression: Pain, Pleural effusion Disposition: HOME SELF-CARE Condition: Good Instructions: Pleural Effusion (ED) Additional Instructions: Patient advised to follow-up with your oncologist tomorrow. Keep the pain patch on until seen by oncology. Patient can use the prescription for one pain patch afterwards. Return to the emergency department if any alarming signs or symptoms occur. Prescriptions: fentaNYL 75MCG/HR PATCH [Duragesic 75MCG/HR] 75 mcg TRANSDERM Q72H 3 Days #1 patch Referrals: Cata Inman MD [Primary Care Provider] - 1-2 days
[2018-03-08] MEDS ORDERED: fentaNYL (PF) 50 MCG/ML 2 ML AMP IV STA (11:32)
[2018-03-08 11:56] VITALS: BP 140/94; PULSE 87; TEMP 98.1
== END 2018-03-08 11:56 | disposition home or self-care (01) ==
LOC: EC 09:18
DX: J90 Pleural effusion, not elsewhere classified (principal); G89.3 Neoplasm related pain (acute) (chronic); I10 Essential (primary) hypertension; C19 Malignant neoplasm of rectosigmoid junction; Z85.72 Personal history of non-Hodgkin lymphomas; Z85.05 Personal history of malignant neoplasm of liver; F41.9 Anxiety disorder, unspecified; Z79.899 Other long term (current) drug therapy
CPT/HCPCS: 71046; 96374; 96375; 99284